=== PATIENT | male | born 1965 | race Caucasian/White ===

== ENCOUNTER 2019-08-02 09:49 | Inpatient (IN) | payer OTHER, SELFPAY ==
[2019-08-02] VITALS (15 sets, daily range): BP systolic 112–142; BP diastolic 60–88; PULSE 76–102; RESP 18–33; TEMP 36.2–39.1; O2SAT 88–98; BMI 31.0
--- NOTE | 2019-08-02 10:20 | DI.RAD.S_ITS ---
PROCEDURE: XR CHEST 1V INDICATIONS: sob, cough, sepsis. TECHNIQUE: One view of the chest was acquired. COMPARISON: [facility], CR, XR CHEST 2 VIEWS, 06/19/2018, 13:59. FINDINGS: Surgical changes and devices: None. Lungs and pleura: Increased attenuation within the retrocardiac region appears to be present on the left. No large effusion or pneumothorax is evident. Mediastinum: Mediastinal contours appear normal. Heart size is normal. Bones and chest wall: No suspicious bony lesions. Overlying soft tissues appear unremarkable. IMPRESSION: Atelectasis versus pneumonia within the retrocardiac region on the left. Dictated by: Shayan Jennings M.D. on 08/02/2019 at 9:41 Approved by: Shayan Jennings M.D. on 08/02/2019 at 9:41
[2019-08-02] MEDS: IBUPROFEN 400 MG TABLET PO (10:31)
[2019-08-02] MEDS: SODIUM CHLORIDE 0.9% 1,000 ML 1000 ML IV ×2 (10:31→12:34)
--- NOTE | 2019-08-02 10:33 | ED.FEVER ---
HPI - Fever General Chief Complaint: Fever Stated Complaint: waiting at [facility] and collapsed/fell of chair/sick Time Seen by Provider: 08/02/19 10:33 Source: patient Mode of arrival: Wheelchair Limitations: no limitations History of Present Illness HPI Narrative: This is a 54-year-old male who comes in with a day or 2 of fevers. Patient states he has not been feeling well. He complains of headache, myalgias, cough with productive sputum. Patient states feels a little bit hard to breathe. He denies any chest pain. He denies any neck pain. He denies any nausea or vomiting. He denies any diarrhea, no black or bloody stools. He denies any abdominal pain. He denies any dysuria, urgency or frequency. patient was at the walk-in clinic when he sort of collapsed. By his description he did not lose consciousness but just felt very ill and sort of fell down. Patient denies any past medical history, denies any prior surgeries. He denies any tobacco use currently or in the past. Denies alcohol, no street drugs or illicit. Denies any allergies to medications. He does not have a primary care. He lives in [place]. Related Data Home Medications Medication Instructions Recorded Confirmed No Known Home Medications 08/02/19 08/02/19 Allergies Allergy/AdvReac Type Severity Reaction Status Date / Time allopurinol [ALLOPURINOL] Allergy Unknown Verified 08/02/19 10:31 Review of Systems Review of Systems ROS Unobtainable: All systems reviewed & are unremarkable except as noted in HPI and below Patient History Social History household members: significant other Smoking Status: Never smoker alcohol intake: never Smoking Status: Never smoker alcohol intake frequency: 0-2 drinks per day Substance Use Type: does not use Exam Narrative Exam Narrative: GEN: well nourished, male, alert and oriented x 3, patient appears to be in moderate distress. patient appears to not feel well. HEENT: Atraumatic, pupils are equal round reactive to light, extraocular movements are intact, nares are clear, TMs are clear with no fluid, there is no conjunctival pallor. Throat is clear without any exudates, erythema, tonsillar enlargement or uvular deviation, no meningeal signs. HEART: Regular rate and rhythm without murmur, clicks, rubs. No carotid bruits, pulses are equal in upper and lower extremities. No edema bilateral lower extremities. LUNGS:Lungs are coarse bilaterally, no wheezes, no rales, positive crackles, chest moves symmetrically, to positive for tachypnea. Patient has a wet sounding cough. ABD:bowel sounds normal, soft, non-tender, no guarding, rebound, rigidity, no masses noted, no hepatosplenomegaly :No CVA tenderness MSCL: Non-tender, no muscle atrophy, full range of motion of upper and lower extremities. NEURO:CN 2-12 intact, sensation normal SKIN: No rash, no petechiae, no lesions. Initial Vital Signs Initial Vital Signs: Vital Signs Temperature 102.4 F H 08/02/19 10:12 Pulse Rate 102 H 08/02/19 10:12 Respiratory Rate 24 08/02/19 10:12 Blood Pressure 138/88 08/02/19 10:12 Pulse Oximetry 88 L 08/02/19 10:12 Course Orders Ordered: ED Orders 08/02/19 10:20 XR chest 1V Stat 08/02/19 10:38 Blood Culture Stat 08/02/19 11:04 Arterial Blood Gas Stat 08/02/19 15:00 Urinalysis and Microscopic Stat Acetaminophen (Tylenol) 650 mg PO Q6HR PRN PRN Reason: Fever/Mild Pain (1-3) Enoxaparin Sodium (Lovenox) 40 mg SUBCUT DAILY CARMEN Sodium Chloride (Normal Saline 0.9%) 1,000 mls @ 100 mls/hr IV CONT CARMEN Last Admin: 08/02/19 16:40 Dose: 100 mls/hr Documented by: FERMÍN Ibuprofen (Advil) 600 mg PO Q6HR PRN PRN Reason: Fever/Mild Pain (1-3) Ondansetron HCl (Zofran) 4 mg IV Q8HR PRN PRN Reason: Nausea And Vomiting Oseltamivir Phosphate (Tamiflu) 75 mg PO BID CARMEN Discontinued Medications Albuterol/Ipratropium (Duoneb) 3 ml INH NOW ONE Stop: 08/02/19 11:43 Last Admin: 08/02/19 12:37 Dose: 3 ml Documented by: RANJEET Sodium Chloride (Normal Saline 0.9%) 1,000 mls @ 1,000 mls/hr IV BOLUS ONE Stop: 08/02/19 11:21 Last Infusion: 08/02/19 12:34 Dose: 0 mls/hr Documented by: Admin: 08/02/19 10:31 Dose: 1,000 mls/hr Documented by: RANJEET Sodium Chloride (Normal Saline 0.9%) 1,000 mls @ 1,000 mls/hr IV BOLUS ONE Stop: 08/02/19 12:41 Last Infusion: 08/02/19 14:13 Dose: 0 mls/hr Documented by: Admin: 08/02/19 12:34 Dose: 1,000 mls/hr Documented by: RANJEET Ibuprofen (Advil) 400 mg PO NOW ONE Stop: 08/02/19 10:23 Last Admin: 08/02/19 10:31 Dose: 400 mg Documented by: RANJEET Influenza Virus Vaccine (Flu Vaccine) 0.5 ml IM .ONCE ONE Stop: 08/02/19 15:56 Last Admin: 08/02/19 16:39 Dose: Not Given Documented by: BRENDAN Lidocaine HCl (Urojet) 5 ml TOP NOW ONE Stop: 08/02/19 14:24 Last Admin: 08/02/19 14:53 Dose: 5 ml Documented by: RANJEET Oseltamivir Phosphate (Tamiflu) 75 mg PO NOW ONE Stop: 08/02/19 11:43 Last Admin: 08/02/19 12:36 Dose: 75 mg Documented by: RANJEET Vital Signs Vital signs: Vital Signs - 8 hr 08/02/19 11:35 08/02/19 11:37 08/02/19 12:15 Temperature 97.2 F L Pulse Rate 93 H 83 Respiratory Rate 30 H 25 H Blood Pressure [Right Arm] 142/75 H 123/69 Pulse Oximetry 96 95 08/02/19 12:38 08/02/19 12:44 08/02/19 13:00 Temperature 99.1 F Pulse Rate 80 86 Respiratory Rate 23 Blood Pressure [Right Arm] 129/65 Pulse Oximetry 96 96 08/02/19 14:00 08/02/19 14:22 Temperature Pulse Rate 76 Respiratory Rate 21 Blood Pressure [Right Arm] 115/72 Pulse Oximetry 96 98 MDM - Fever Lab Data Attestation: I reviewed the patient's lab results. Result diagrams: 08/02/19 10:05 08/02/19 10:05 Labs: Lab Results 08/02/19 08/02/19 08/02/19 Range/Units 10:05 10:05 10:05 WBC 4.4 L (4.5-11.0) X10^3/uL RBC 4.60 (4.5-5.9) X10^6/uL Hgb 15.4 (13.5-17.5) g/dL Hct 42.5 (41-53) % MCV 92.4 (80-100) fL MCH 33.5 (26-34) PG MCHC 36.2 H (30-36) % RDW 12.6 (11.6-14.8) % Plt Count 151 (150-400) X10^3/uL Neut % (Auto) 73.0 (50-75) % Lymph % (Auto) 18.8 L (25-40) % [place] % (Auto) 8.0 (3-14) % Eos % (Auto) 0.0 L (2-4) % Baso % (Auto) 0.2 (0-2) % Neut # (Auto) 3200 (8372-6061) /uL Lymph # (Auto) 800 L (7463-4398) /uL [place] # (Auto) 400 (0-900) /uL Eos # (Auto) 0 (0-450) /uL Baso # (Auto) 0 (0-100) /uL ABG pH (7.35-7.45) ABG pCO2 (35-45) mmHg ABG pO2 (80-100) mmHg ABG HCO3 (22-26) mmol/L ABG Total CO2 (21-31) mmol/L ABG O2 Saturation (95-100) % ABG Base Excess (-2-2) mmol/L FiO2 Sodium 132 L (137-145) mmol/L Potassium 3.4 (3.4-5.1) mmol/L Chloride 97 L (98-107) mmol/L Carbon Dioxide 22 (22-32) mmol/L BUN 16 (9-20) mg/dL Creatinine 1.00 (0.66-1.25) mg/dL Estimated GFR > 60.0 (>60) mL/min BUN/Creatinine Ratio 16.0 (6-22) Glucose 128 H (70-100) mg/dL Lactate (0.7-2.1) mmol/L Calcium 7.7 L (8.4-10.2) mg/dL Total Bilirubin 0.8 (0.2-1.3) mg/dL AST 75 H (17-59) IU/L ALT 44 (<50) IU/L Alkaline Phosphatase 70 (38-126) U/L Total Protein 6.9 (6.3-8.2) g/dL Albumin 4.0 (3.5-5.0) g/dL Globulin 2.9 (1.7-4.1) g/dL Albumin/Globulin Ratio 1.4 (1.0-2.8) Procalcitonin 0.19 (<0.5) ng/mL Urine Color Urine Appearance Urine pH (4.5-8.0) Ur Specific [place] (1.000-1.035) Urine Protein (Negative) Urine Glucose (UA) (Negative) g/dL Urine Ketones (NEGATIVE) Urine Occult Blood (Negative) Urine Nitrate (Negative) Urine Bilirubin (NEGATIVE) Urine Urobilinogen (0.2) E.U./dL Ur Leukocyte Esterase (NEGATIVE) Urine RBC (0-5/HPF) Urine WBC (0-5/HPF) Amorphous Sediment Urine Bacteria (None) Hyaline Casts (None) Ur Culture Indicated? Influenza A (RT-PCR) (NEGATIVE) Influenza B (RT-PCR) (NEGATIVE) 08/02/19 08/02/19 08/02/19 Range/Units 10:05 10:10 11:04 WBC (4.5-11.0) X10^3/uL RBC (4.5-5.9) X10^6/uL Hgb (13.5-17.5) g/dL Hct (41-53) % MCV (80-100) fL MCH (26-34) PG MCHC (30-36) % RDW (11.6-14.8) % Plt Count (150-400) X10^3/uL Neut % (Auto) (50-75) % Lymph % (Auto) (25-40) % [place] % (Auto) (3-14) % Eos % (Auto) (2-4) % Baso % (Auto) (0-2) % Neut # (Auto) (7223-4511) /uL Lymph # (Auto) (8507-7671) /uL [place] # (Auto) (0-900) /uL Eos # (Auto) (0-450) /uL Baso # (Auto) (0-100) /uL ABG pH 7.45 (7.35-7.45) ABG pCO2 28.0 L (35-45) mmHg ABG pO2 51 L (80-100) mmHg ABG HCO3 19 L (22-26) mmol/L ABG Total CO2 20 L (21-31) mmol/L ABG O2 Saturation 88 L (95-100) % ABG Base Excess -5.0 L (-2-2) mmol/L FiO2 21 Sodium (137-145) mmol/L Potassium (3.4-5.1) mmol/L Chloride (98-107) mmol/L Carbon Dioxide (22-32) mmol/L BUN (9-20) mg/dL Creatinine (0.66-1.25) mg/dL Estimated GFR (>60) mL/min BUN/Creatinine Ratio (6-22) Glucose (70-100) mg/dL Lactate 1.2 (0.7-2.1) mmol/L Calcium (8.4-10.2) mg/dL Total Bilirubin (0.2-1.3) mg/dL AST (17-59) IU/L ALT (<50) IU/L Alkaline Phosphatase (38-126) U/L Total Protein (6.3-8.2) g/dL Albumin (3.5-5.0) g/dL Globulin (1.7-4.1) g/dL Albumin/Globulin Ratio (1.0-2.8) Procalcitonin (<0.5) ng/mL Urine Color Urine Appearance Urine pH (4.5-8.0) Ur Specific [place] (1.000-1.035) Urine Protein (Negative) Urine Glucose (UA) (Negative) g/dL Urine Ketones (NEGATIVE) Urine Occult Blood (Negative) Urine Nitrate (Negative) Urine Bilirubin (NEGATIVE) Urine Urobilinogen (0.2) E.U./dL Ur Leukocyte Esterase (NEGATIVE) Urine RBC (0-5/HPF) Urine WBC (0-5/HPF) Amorphous Sediment Urine Bacteria (None) Hyaline Casts (None) Ur Culture Indicated? Influenza A (RT-PCR) Flu a positive H (NEGATIVE) Influenza B (RT-PCR) Flu b negative (NEGATIVE) 08/02/19 Range/Units 15:00 WBC (4.5-11.0) X10^3/uL RBC (4.5-5.9) X10^6/uL Hgb (13.5-17.5) g/dL Hct (41-53) % MCV (80-100) fL MCH (26-34) PG MCHC (30-36) % RDW (11.6-14.8) % Plt Count (150-400) X10^3/uL Neut % (Auto) (50-75) % Lymph % (Auto) (25-40) % [place] % (Auto) (3-14) % Eos % (Auto) (2-4) % Baso % (Auto) (0-2) % Neut # (Auto) (0276-9391) /uL Lymph # (Auto) (2134-4399) /uL [place] # (Auto) (0-900) /uL Eos # (Auto) (0-450) /uL Baso # (Auto) (0-100) /uL ABG pH (7.35-7.45) ABG pCO2 (35-45) mmHg ABG pO2 (80-100) mmHg ABG HCO3 (22-26) mmol/L ABG Total CO2 (21-31) mmol/L ABG O2 Saturation (95-100) % ABG Base Excess (-2-2) mmol/L FiO2 Sodium (137-145) mmol/L Potassium (3.4-5.1) mmol/L Chloride (98-107) mmol/L Carbon Dioxide (22-32) mmol/L BUN (9-20) mg/dL Creatinine (0.66-1.25) mg/dL Estimated GFR (>60) mL/min BUN/Creatinine Ratio (6-22) Glucose (70-100) mg/dL Lactate (0.7-2.1) mmol/L Calcium (8.4-10.2) mg/dL Total Bilirubin (0.2-1.3) mg/dL AST (17-59) IU/L ALT (<50) IU/L Alkaline Phosphatase (38-126) U/L Total Protein (6.3-8.2) g/dL Albumin (3.5-5.0) g/dL Globulin (1.7-4.1) g/dL Albumin/Globulin Ratio (1.0-2.8) Procalcitonin (<0.5) ng/mL Urine Color Yellow Urine Appearance Clear Urine pH 5.5 (4.5-8.0) Ur Specific [place] 1.010 (1.000-1.035) Urine Protein 1+ H (Negative) Urine Glucose (UA) Negative (Negative) g/dL Urine Ketones Negative (NEGATIVE) Urine Occult Blood 1+ H (Negative) Urine Nitrate Negative (Negative) Urine Bilirubin Negative (NEGATIVE) Urine Urobilinogen 0.2 (0.2) E.U./dL Ur Leukocyte Esterase Negative (NEGATIVE) Urine RBC 0-1/hpf (0-5/HPF) Urine WBC 0-1/hpf (0-5/HPF) Amorphous Sediment 2+ Urine Bacteria None seen (None) Hyaline Casts 0-1/lpf (None) Ur Culture Indicated? Cult not indicated Influenza A (RT-PCR) (NEGATIVE) Influenza B (RT-PCR) (NEGATIVE) Imaging Data Chest x-ray: Radiologist's impression: [address] [address] XRay Report Signed Patient: Noble Garcia R#: [id number] : 1965Acct:[id number] Age/Sex: 54 / MDate of Service: 08/02/19 Loc: ED Accession Number: [id number] Procedure: XR chest 1V Ordering Provider: Karli Mcknight D.O. PROCEDURE: XR CHEST 1V INDICATIONS: sob, cough, sepsis. TECHNIQUE: One view of the chest was acquired. COMPARISON: [facility], , XR CHEST 2 VIEWS, 06/19/2018, 13:59. FINDINGS: Surgical changes and devices: None. Lungs and pleura: Increased attenuation within the retrocardiac region appears to be present on the left. No large effusion or pneumothorax is evident. Mediastinum: Mediastinal contours appear normal. Heart size is normal. Bones and chest wall: No suspicious bony lesions. Overlying soft tissues appear unremarkable. IMPRESSION: Atelectasis versus pneumonia within the retrocardiac region on the left. Dictated by: Shayan Jennings M.D. on 08/02/2019 at 9:41 Approved by: Shayan Jennings M.D. on 08/02/2019 at 9:41 ECG Data Interpretation: MDM Narrative Medical decision making narrative: On recheck, patient is feeling improved. Temperature has decreased, he still has tachypnea. Patient does come in with a fever, a pulse of 102 and his white count is 4.4, 132 with a chloride 97 glucose is 128. Calcium is 7.7 with an AST of 75, procalcitonin is 0.19 with patient's x-ray findings of a possible pneumonia this and be not likely bacterial in patient is influenza positive. He is quite course in his O2 is decreased on room air as well as on ABG and appears to have more of a respiratory alkalosis. Discussed with patient I would like keep him for observation. Tamiflu, antibiotics held as bacterial is less likely cause of current infection. Spoke with Dr. Islas the hospitalist, he accepts for observation. Discharge Plan Departure Patient Disposition: Admitted as Observation Clinical Impression: Pneumonia, Influenza A, Sepsis Discharge Date/Time: 08/02/19 15:00 Admit Date/Time: 08/02/19 15:30 Admit Provider: Ryland Islas
[2019-08-02 10:35] LABS: Add Manual Diff / Slide Review NO; Basophils Absolute Auto 0 /uL (0-100); Basophils Percent Auto 0.2 % (0-2); Eosinophils Absolute Auto 0 /uL (0-450); Hematocrit 42.5 % (41-53); Hemoglobin 15.4 g/dL (13.5-17.5); Lymphocytes Absolute Auto 800 /uL (1100-4500); Lymphocytes Percent Auto 18.8 % (25-40); Mean Corpuscular HGB Conc 36.2 % (30-36); Mean Corpuscular Hemoglobin 33.5 PG (26-34); Mean Corpuscular Volume 92.4 fL (80-100); Monocytes Absolute Auto 400 /uL (0-900); Neutrophils Absolute Auto 3200 /uL (1500-7000); Platelet Count 151 X10^3/uL (150-400); Red Cell Distribution Width 12.6 % (11.6-14.8); White Blood Cell Count 4.4 X10^3/uL (4.5-11.0)
[2019-08-02 10:39] LABS: Alanine Aminotransferase 44 IU/L (<50); Albumin Globulin Ratio 1.4 (1.0-2.8); Alkaline Phosphatase 70 U/L (38-126); Aspartate Aminotransferase 75 IU/L (17-59); Bilirubin Total 0.8 mg/dL (0.2-1.3); Blood Urea Nitrogen 16 mg/dL (9-20); Calcium 7.7 mg/dL (8.4-10.2); Carbon Dioxide 22 mmol/L (22-32); Chloride 97 mmol/L (98-107); Estimated Glomerular Filt Rate > 60.0 mL/min (>60); Globulin 2.9 g/dL (1.7-4.1); Glucose 128 mg/dL (70-100); HEMOLYSIS < 15 (0-50); Potassium 3.4 mmol/L (3.4-5.1); Sodium 132 mmol/L (137-145); Total Protein 6.9 g/dL (6.3-8.2)
[2019-08-02 10:40] LABS: Lactate (Lactic Acid) 1.2 mmol/L (0.7-2.1)
[2019-08-02 11:01] LABS: Procalcitonin 0.19 ng/mL (<0.5)
[2019-08-02 11:19] LABS: Fractionated Inspired Oxygen 21; HCO3 ABG 19 mmol/L (22-26); Oxygen Saturation ABG 88 % (95-100); PO2 ABG 51 mmHg (80-100); TCO2 ABG 20 mmol/L (21-31); pH ABG 7.45 (7.35-7.45)
[2019-08-02 11:24] LABS: Influenza A - CEPHEID Flu A POSITIVE (NEGATIVE); Influenza B - CEPHEID Flu B NEGATIVE (NEGATIVE)
[2019-08-02] MEDS: OSELTAMIVIR 75 MG CAPSULE PO ×2 (12:36→20:55)
[2019-08-02] MEDS: ALBUTEROL/IPRATROPIUM 3 ML AMPUL INH (12:37)
--- NOTE | 2019-08-02 14:15 | PC.NURSE ---
Attempted to give report, Accepting RN unable to take report at this time.
[2019-08-02] MEDS: LIDOCAINE 2% (UROJET) 5 ML GEL TOP (14:53)
[2019-08-02 15:12] LABS: Bacteria Urine None Seen
[2019-08-02 15:16] LABS: Appearance Urine UA CLEAR; Bilirubin Urine UA NEGATIVE (NEGATIVE); Color Urine UA YELLOW; Glucose Urine UA NEGATIVE (Negative); Ketones Urine UA NEGATIVE (NEGATIVE); Leukocyte Esterase Urine UA NEGATIVE (NEGATIVE); Nitrite Urine UA NEGATIVE (Negative); Occult Blood Urine UA 1+ (Negative); Protein Urine UA 1+ (Negative); Urobilinogen Urine UA 0.2 E.U./dL (0.2); pH Urine UA 5.5 (4.5-8.0)
[2019-08-02 15:26] LABS: Amorphous Sediment Urine 2+; Culture Indicated Urine Cult Not Indicated; Hyaline Casts Urine 0-1/LPF; RBC Urine 0-1/HPF (0-5/HPF); WBC Urine 0-1/HPF (0-5/HPF)
--- NOTE | 2019-08-02 15:45 | PC.NURSE ---
Received report from ED but pt didn't arrive until almost 1500. He denies any problems at this time. Sats on 2L are 96%. Hob elevated. Is wearing a mask. Report given to oncoming shift. Pt denies any immed concerns at this time.
--- NOTE | 2019-08-02 15:57 | PM.HP.1 ---
History of Present Illness History of Present Illness Date Patient Seen: 08/02/19 Time Patient Seen: 16:03 Chief complaint: waiting at [facility] and collapsed/fell of chair/sick Narrative: Noble Garcia is a 54-year-old male who denies past medical history who states that he has been feeling sick with headache, myalgias, productive cough for the past 5 days. He has been getting worse as far as his symptoms and he feels like it is getting harder to breathe. He denied any chest pain, nausea, vomiting, abdominal pain. He has had no diarrhea. He initially presented to the walk-in clinic when he became very ill and fell to the ground. He did not pass out and he did not hit his head. During my interview the patient appears ill, speaking only in 1-2 word phrases, and primarily is limited to yes or no responses. History is taken in combination from the patient and emergency room documentation. In the emergency room, patient's vital signs were notable for a fever to 102, tachycardia, hypoxemia to 88% on room air which responded to a minimal supplemental oxygenation. His flu test was positive for influenza a. ABG was also performed which showed a PO2 of 51. Other lab evaluation showed a relatively unremarkable CBC, WBC count of 4.4. Chemistries revealed a sodium of 132, chloride 97, creatinine of 1.0, glucose of 128, lactate of 1.2 and a mildly elevated AST at 75. His procalcitonin was 0.19. In the emergency room he was also obstructed had 650 cc of urine. A Gao catheter was placed. UA was negative for infection. Patient was admitted to Medicine for sepsis with acute hypoxemic respiratory failure secondary to influenza A. Patient History Family & Social History Social History: household members significant other Prior Living Arrangements Mobile home Safety & Behavioral: Feels Safe in Current Yes Environment Been Physically Hurt or No Threatened By a Person Suicidal Ideation Description None Suicide Plan Description No Plan Tobacco & Substance use: Smoking Status Never smoker alcohol intake never alcohol intake frequency 0-2 drinks per day Substance Use Type does not use Meds Home Medications and Allergies Home Medications Medication Instructions Recorded Confirmed Type No Known Home Medications 08/02/19 08/02/19 History Allergies Allergy/AdvReac Type Severity Reaction Status Date / Time allopurinol [ALLOPURINOL] Allergy Unknown Verified 08/02/19 10:31 Review of Systems Review of Systems Narrative: All other systems reviewed with the patient and are negative unless otherwise stated. Exam Vital Signs (past 8 hours): - 08/02/19 10:12 08/02/19 10:15 08/02/19 10:30 Temperature 102.4 F H Pulse Rate 102 H 99 H 89 Respiratory Rate 24 18 33 H Blood Pressure 138/88 Blood Pressure [Right Arm] 141/76 H 132/75 Pulse Oximetry 88 L 95 94 08/02/19 11:00 08/02/19 11:35 08/02/19 11:37 Temperature 97.2 F L Pulse Rate 91 H 93 H Respiratory Rate 21 30 H Blood Pressure Blood Pressure [Right Arm] 129/76 142/75 H Pulse Oximetry 94 96 08/02/19 12:15 08/02/19 12:38 08/02/19 12:44 Temperature 99.1 F Pulse Rate 83 80 Respiratory Rate 25 H Blood Pressure Blood Pressure [Right Arm] 123/69 Pulse Oximetry 95 96 08/02/19 13:00 08/02/19 14:00 08/02/19 14:22 Temperature Pulse Rate 86 76 Respiratory Rate 23 21 Blood Pressure Blood Pressure [Right Arm] 129/65 115/72 Pulse Oximetry 96 96 98 Oxygen Delivery Method Nasal Cannula Oxygen Flow Rate 2 Narrative Exam Narrative: GENERAL APPEARANCE: Appears acutely ill, diaphoretic, eyes closed and opens to voice. SKIN: Inspection of the skin reveals no rashes, ulcerations or petechiae. HEENT: Oral mucosa appears dry, sclera is anicteric, normocephalic and atraumatic. NECK: Supple and symmetric. There was no thyroid enlargement, and no tenderness, or masses were felt. No cervical lymphadenopathy is palpable. CHEST: Normal AP diameter and normal contour without any kyphoscoliosis. LUNGS: Auscultation of the lungs revealed diminished breath sounds primarily in the lung bases but no wheezes, rhonchi, or rales. His effort was poor. CARDIOVASCULAR: There was a regular rate and rhythm without any murmurs, gallops, rubs. Peripheral pulses were 2+ and symmetric. ABDOMEN: Soft and nontender with normal bowel sounds. No ascites was noted. MUSCULOSKELETAL: There was no tenderness or effusions noted. Muscle strength and tone were normal. EXTREMITIES: No cyanosis, clubbing or edema. NEUROLOGIC: GCS of 13, he is confused and opens eyes to voice. He follows commands. He is moving all extremities equally. Objective Labs Result Diagrams: 08/02/19 10:05 08/02/19 10:05 Labs: Laboratory Results - last 24 hr 08/02/19 08/02/19 08/02/19 10:05 10:05 10:05 WBC 4.4 L RBC 4.60 Hgb 15.4 Hct 42.5 MCV 92.4 MCH 33.5 MCHC 36.2 H RDW 12.6 Plt Count 151 Neut % (Auto) 73.0 Lymph % (Auto) 18.8 L [place] % (Auto) 8.0 Eos % (Auto) 0.0 L Baso % (Auto) 0.2 Neut # (Auto) 3200 Lymph # (Auto) 800 L [place] # (Auto) 400 Eos # (Auto) 0 Baso # (Auto) 0 ABG pH ABG pCO2 ABG pO2 ABG HCO3 ABG Total CO2 ABG O2 Saturation ABG Base Excess FiO2 Sodium 132 L Potassium 3.4 Chloride 97 L Carbon Dioxide 22 BUN 16 Creatinine 1.00 Estimated GFR > 60.0 BUN/Creatinine Ratio 16.0 Glucose 128 H Lactate Calcium 7.7 L Total Bilirubin 0.8 AST 75 H ALT 44 Alkaline Phosphatase 70 Total Protein 6.9 Albumin 4.0 Globulin 2.9 Albumin/Globulin Ratio 1.4 Procalcitonin 0.19 Urine Color Urine Appearance Urine pH Ur Specific [place] Urine Protein Urine Glucose (UA) Urine Ketones Urine Occult Blood Urine Nitrate Urine Bilirubin Urine Urobilinogen Ur Leukocyte Esterase Urine RBC Urine WBC Amorphous Sediment Urine Bacteria Hyaline Casts Ur Culture Indicated? Influenza A (RT-PCR) Influenza B (RT-PCR) 08/02/19 08/02/19 08/02/19 10:05 10:10 11:04 WBC RBC Hgb Hct MCV MCH MCHC RDW Plt Count Neut % (Auto) Lymph % (Auto) [place] % (Auto) Eos % (Auto) Baso % (Auto) Neut # (Auto) Lymph # (Auto) [place] # (Auto) Eos # (Auto) Baso # (Auto) ABG pH 7.45 ABG pCO2 28.0 L ABG pO2 51 L ABG HCO3 19 L ABG Total CO2 20 L ABG O2 Saturation 88 L ABG Base Excess -5.0 L FiO2 21 Sodium Potassium Chloride Carbon Dioxide BUN Creatinine Estimated GFR BUN/Creatinine Ratio Glucose Lactate 1.2 Calcium Total Bilirubin AST ALT Alkaline Phosphatase Total Protein Albumin Globulin Albumin/Globulin Ratio Procalcitonin Urine Color Urine Appearance Urine pH Ur Specific [place] Urine Protein Urine Glucose (UA) Urine Ketones Urine Occult Blood Urine Nitrate Urine Bilirubin Urine Urobilinogen Ur Leukocyte Esterase Urine RBC Urine WBC Amorphous Sediment Urine Bacteria Hyaline Casts Ur Culture Indicated? Influenza A (RT-PCR) Flu a positive H Influenza B (RT-PCR) Flu b negative 08/02/19 15:00 WBC RBC Hgb Hct MCV MCH MCHC RDW Plt Count Neut % (Auto) Lymph % (Auto) [place] % (Auto) Eos % (Auto) Baso % (Auto) Neut # (Auto) Lymph # (Auto) [place] # (Auto) Eos # (Auto) Baso # (Auto) ABG pH ABG pCO2 ABG pO2 ABG HCO3 ABG Total CO2 ABG O2 Saturation ABG Base Excess FiO2 Sodium Potassium Chloride Carbon Dioxide BUN Creatinine Estimated GFR BUN/Creatinine Ratio Glucose Lactate Calcium Total Bilirubin AST ALT Alkaline Phosphatase Total Protein Albumin Globulin Albumin/Globulin Ratio Procalcitonin Urine Color Yellow Urine Appearance Clear Urine pH 5.5 Ur Specific [place] 1.010 Urine Protein 1+ H Urine Glucose (UA) Negative Urine Ketones Negative Urine Occult Blood 1+ H Urine Nitrate Negative Urine Bilirubin Negative Urine Urobilinogen 0.2 Ur Leukocyte Esterase Negative Urine RBC 0-1/hpf Urine WBC 0-1/hpf Amorphous Sediment 2+ Urine Bacteria None seen Hyaline Casts 0-1/lpf Ur Culture Indicated? Cult not indicated Influenza A (RT-PCR) Influenza B (RT-PCR) Assessment & Plan Assessment & Plan narrative: Noble Garcia is a 54-year-old male who denies past medical history who states that he has been feeling sick with headache, myalgias, productive cough for the past 5 days. He is admitted to Medicine with sepsis secondary to influenza a. 1. Sepsis, acute, present on admission - SOFA score of 3 with hypoxemic respiratory failure and GCS of 13. He also has borderline platelets at 151. Secondary to influenza a. Procalcitonin is negative in do not suspect superimposed bacterial pneumonia at this time. -continue supportive care with Tamiflu 75 mg b.i.d. -supplemental oxygen to maintain level greater than 80% -continue IV fluids -symptom management with Tylenol or Motrin. -continue telemetry 2. Acute hypoxemic respiratory failure, secondary to influenza a as noted above. Treatment is supportive care at this time. -supplemental oxygen as noted above -continue management of sepsis 3. Toxic metabolic encephalopathy, acute, present on admission -secondary to above sepsis and this regulated response from influenza a. -continue supportive management as above 4. Urinary obstruction, acute, present on admission -UA negative for infection, unclear etiology and patient reports no past medical history. Not able to give a reliable history for BPH symptoms at this time. -when mental status has improved, will attempt trial of void, with or without possible BPH medications depending on symptoms. 5. Elevated glucose, present on admission -obtain A1c -continue management of sepsis as noted above 6. Elevated AST, acuity uncertain, present on admission -likely elevated secondary to influenza. -continue to follow hepatic panel, supportive care as noted above. Code: Full, patient states his brother is emergency contact and surrogate decision maker DVT: Lovenox daily Dispo: Patient is admitted under inpatient status as his stay is likely to exceed 2 midnights. Scores GCS Baldev coma scale eye opening: To sound Baldev coma scale verbal response: Confused [place] coma scale motor response: Obey commands Baldev coma scale total score: 13 Quality VTE Deep Vein Thrombosis/Pulmonary Embolism Present on Admission: No
[2019-08-02] MEDS: SODIUM CHLORIDE 0.9% 1,000 ML 100 ML IV (16:40)
[2019-08-02] MEDS: ACETAMINOPHEN 325 MG TABLET 650 MG PO (20:55)
--- NOTE | 2019-08-02 21:44 | PC.NURSE ---
Patient sleeping most of shift; fever 100.9 and shivering; PO Tylenol administered with water; A&O X3; Tele SR; mild expirator wheezes to anterior RLL; IV fluids infusing; Bed alarm active and call light within reach
[2019-08-03] VITALS (11 sets, daily range): BP systolic 116–132; BP diastolic 69–83; PULSE 80–92; RESP 16–30; TEMP 37.1–38.6; O2SAT 88–95
[2019-08-03] MEDS: IBUPROFEN 600 MG TABLET PO ×2 (00:52→18:27)
[2019-08-03] MEDS: SODIUM CHLORIDE 0.9% 1,000 ML 100 ML IV ×2 (03:55→14:42)
[2019-08-03 06:51] LABS: Blood Urea Nitrogen 16 mg/dL (9-20); Calcium 7.4 mg/dL (8.4-10.2); Carbon Dioxide 25 mmol/L (22-32); Chloride 105 mmol/L (98-107); Estimated Glomerular Filt Rate > 60.0 mL/min (>60); Glucose 96 mg/dL (70-100); HEMOLYSIS < 15 (0-50); Magnesium 2.4 mg/dL (1.6-2.3); Phosphorous 2.8 mg/dL (2.5-4.5); Potassium 3.4 mmol/L (3.4-5.1); Sodium 137 mmol/L (137-145)
[2019-08-03 06:55] LABS: White Blood Cell Count 4.3 X10^3/uL (4.5-11.0)
[2019-08-03 06:56] LABS: Add Manual Diff / Slide Review YES; Hematocrit 39.8 % (41-53); Hemoglobin 14.2 g/dL (13.5-17.5); Mean Corpuscular HGB Conc 35.8 % (30-36); Mean Corpuscular Hemoglobin 33.3 PG (26-34); Platelet Count 152 X10^3/uL (150-400); Red Blood Cell Count 4.28 X10^6/uL (4.5-5.9); Red Cell Distribution Width 12.9 % (11.6-14.8)
[2019-08-03 06:59] LABS: Hemoglobin A1C% w Est Avg Glu 5.6 % (4.0-6.0)
[2019-08-03 07:24] LABS: Procalcitonin 0.18 ng/mL (<0.5)
[2019-08-03 07:36] LABS: Neutrophils Absolute Manual 2107 /uL (3000-5900); Total Cells Counted 100
[2019-08-03 07:37] LABS: RBC Morphology Normal Morphology
[2019-08-03] MEDS: ENOXAPARIN 40 MG/0.4 ML SYRINGE SUBCUT (09:33)
[2019-08-03] MEDS: OSELTAMIVIR 75 MG CAPSULE PO ×2 (09:33→21:25)
--- NOTE | 2019-08-03 11:01 | CM.DANOTE ---
DCP: Case received, EMR reviewed and met briefly with patient. He was not feeling well, made conversation short. Was able to get some baseline information from patient. DCP assessment completed with information currently available. Patient is a 54 year old male who admitted yesterday afternoon to the care of the hospitalist team. PCP: No provider currently Payer: confirmed: Nathaly PRESLEY. Patient came over to the hospital via wheel-chair from the [id number]. He apparently had a syncopal episode, secondary to increased weakness, malaise. Patient was presented with a head-ache, as well as fever. Patient is also to note sepsis/hypoxemia. He holds current diagnosis of Influenza A. Met briefly with patient, was laying bed, limited conversation, due to patient's illness. He is currently on oxygen. He resides in [place], confirmed that he does not have a PCP. He stated that he lives with his girlfriend. Patient is independent, currently employed in [employer]. P: DCP to continue to follow. He is here due to flu symptoms and weakness at this time. He should be able to return home when he is medically stable, and no longer needs oxygen. Sandee Srinivasan RN/Broommaking Supervisor
[2019-08-03] MEDS: ONDANSETRON 4 MG/2 ML INJ IV (14:42)
[2019-08-03] MEDS: ACETAMINOPHEN 325 MG TABLET 650 MG PO (14:42)
[2019-08-03] MEDS: MAG HYDROX/ALUM/SIMETH 30 ML UDC PO (14:42)
--- NOTE | 2019-08-03 16:07 | PM.PN.1 ---
Subjective Subjective Date Patient Seen: 08/03/19 Time Patient Seen: 09:00 Interval history: Noble Garcia is a 54-year-old male with no past medical history who was admitted for the flu. He was confused yesterday but he has improved today. He remains ill and has barely taken in any oral intake today. His A1c value came back at 5.6%. His procalcitonin is stable at 0.18 today. His electrolytes are unremarkable and his WBC count remains stable at 4.3 today. He was febrile this morning to 102, and although he is no longer hypoxic he is quite tachypneic. Exam Vital Signs (past 8 hours): - 08/03/19 09:00 08/03/19 13:55 08/03/19 14:59 Temperature 99 F 99.8 F H Pulse Rate 82 83 92 H Respiratory Rate 18 18 30 H Blood Pressure 130/75 123/83 Pulse Oximetry 91 95 95 Oxygen Delivery Method Room Air Oxygen Flow Rate 0 Narrative Exam Narrative: GENERAL APPEARANCE: Appears acutely ill, diaphoretic, opens eyes spontaneously today. He is lying in a hospital bed with a cold washcloth over his forehead. SKIN: Inspection of the skin reveals no rashes, ulcerations or petechiae. HEENT: Oral mucosa appears moist, sclera is anicteric, normocephalic and atraumatic. NECK: Supple and symmetric. There was no thyroid enlargement, and no tenderness, or masses were felt. No cervical lymphadenopathy is palpable. CHEST: Normal AP diameter and normal contour without any kyphoscoliosis. LUNGS: Auscultation of the lungs revealed diminished breath sounds primarily in the lung bases but no wheezes, rhonchi, or rales. His effort was poor. CARDIOVASCULAR: There was a regular rate and rhythm without any murmurs, gallops, rubs. Peripheral pulses were 2+ and symmetric. ABDOMEN: Soft and nontender with normal bowel sounds. No ascites was noted. MUSCULOSKELETAL: There was no tenderness or effusions noted. Muscle strength and tone were normal. EXTREMITIES: No cyanosis, clubbing or edema. NEUROLOGIC: Confusion has improved today, GCS of 15. He follows commands. He is moving all extremities equally. Objective Labs Result Diagrams: 08/03/19 06:15 08/03/19 06:15 Labs: Laboratory Results - last 24 hr 08/03/19 08/03/19 08/03/19 06:15 06:15 06:15 WBC 4.3 L RBC 4.28 L Hgb 14.2 Hct 39.8 L MCV 93.0 MCH 33.3 MCHC 35.8 RDW 12.9 Plt Count 152 Neut % (Auto) Not Reportable Lymph % (Auto) Not Reportable [place] % (Auto) Not Reportable Eos % (Auto) Not Reportable Baso % (Auto) Not Reportable Lymph # (Auto) Not Reportable [place] # (Auto) Not Reportable Baso # (Auto) Not Reportable Total Counted 100 Seg Neutrophils % 46.0 Band Neutrophils % 3.0 Lymphocytes % (Manual) 40.0 Atypical Lymphs % 4.0 H Monocytes % (Manual) 7.0 Neutrophils # (Manual) 2107 L RBC Morphology Normal morphology Sodium Potassium Chloride Carbon Dioxide BUN Creatinine Estimated GFR BUN/Creatinine Ratio Glucose Hemoglobin A1c 5.6 Calcium Phosphorus Magnesium Procalcitonin 0.18 08/03/19 06:15 WBC RBC Hgb Hct MCV MCH MCHC RDW Plt Count Neut % (Auto) Lymph % (Auto) [place] % (Auto) Eos % (Auto) Baso % (Auto) Lymph # (Auto) [place] # (Auto) Baso # (Auto) Total Counted Seg Neutrophils % Band Neutrophils % Lymphocytes % (Manual) Atypical Lymphs % Monocytes % (Manual) Neutrophils # (Manual) RBC Morphology Sodium 137 Potassium 3.4 Chloride 105 Carbon Dioxide 25 BUN 16 Creatinine 1.00 Estimated GFR > 60.0 BUN/Creatinine Ratio 16.0 Glucose 96 Hemoglobin A1c Calcium 7.4 L Phosphorus 2.8 Magnesium 2.4 H Procalcitonin Assessment & Plan Assessment & Plan narrative: Noble Garcia is a 54-year-old male who denies past medical history who states that he has been feeling sick with headache, myalgias, productive cough for the past 5 days. He is admitted to Medicine with sepsis secondary to influenza a. 1. Sepsis, acute, present on admission - SOFA score of 3 with hypoxemic respiratory failure and GCS of 13. His confusion has improved today. He also has borderline platelets at 151 on admission and stable today. Sepsis is Secondary to influenza a. Procalcitonin is negative in do not suspect superimposed bacterial pneumonia at this time. -continue supportive care with Tamiflu 75 mg b.i.d. -supplemental oxygen to maintain level greater than 80% -continue IV fluids, will switch to D5 1/2 NS today as patient is not tolerating much p.o. intake and should have at least some sugar. -symptom management with Tylenol or Motrin. -continue telemetry 2. Acute hypoxemic respiratory failure, secondary to influenza a as noted above. Treatment is supportive care at this time. -supplemental oxygen as noted above -continue management of sepsis 3. Toxic metabolic encephalopathy, acute, present on admission, improved-secondary to above sepsis and this regulated response from influenza a. -continue supportive management as above 4. Urinary obstruction, acute, present on admission -UA negative for infection, unclear etiology and patient reports no past medical history. Not able to give a reliable history for BPH symptoms at this time. -when mental status has improved, will attempt trial of void, with or without possible BPH medications depending on symptoms. 5. Pre diabetes, new diagnosis -glucose mildly elevated on admission, A1c of 5.6% -will recommend lifestyle modifications when patient is clinically more improved 6. Elevated AST, acuity uncertain, present on admission -likely elevated secondary to influenza and sepsis, also consider MCGUIRE. -continue to follow hepatic panel, supportive care as noted above. Code: Full, patient states his brother is emergency contact and surrogate decision maker DVT: Lovenox daily Dispo: Patient is admitted under inpatient status. He remains acutely ill and anticipate discharge in the next 1-2 days once recovered from influenza. Quality VTE Deep Vein Thrombosis/Pulmonary Embolism Present on Admission: No
--- NOTE | 2019-08-03 16:10 | PC.NURSE ---
Addendum entered by Veronique Farley R.N. 08/03/19 22:17: Pt sats at 88% while on RA while sleeping. Applied O2 at 2L. O2 sats now at 94%. [facility] Addendum entered by Veronique Farley R.N. 08/03/19 16:12: Original Note: Pt alert and oriented x3. Pt lying in bed moaning saying he feels terrible. Dry cough present. Denies pain or nausea at this time. Dr Islas rounding patient at bedside and aware. Gao draining naomi urine, patent and intact. [facility]
[2019-08-03] MEDS: DEXTROSE 5%-0.45% NS 1,000 ML 100 ML IV (16:41)
[2019-08-04 00:14] VITALS: BP 117/63; PULSE 72; RESP 16; TEMP 36.7; O2SAT 93
[2019-08-04] MEDS: DEXTROSE 5%-0.45% NS 1,000 ML 100 ML IV (01:49)
[2019-08-04 06:00] VITALS: BP 120/71; PULSE 75; RESP 20; TEMP 36.8; O2SAT 95
[2019-08-04 06:15] LABS: Add Manual Diff / Slide Review NO; Basophils Absolute Auto 0 /uL (0-100); Basophils Percent Auto 0.3 % (0-2); Eosinophils Absolute Auto 0 /uL (0-450); Eosinophils Percent Auto 0.3 % (2-4); Hematocrit 38.5 % (41-53); Hemoglobin 13.8 g/dL (13.5-17.5); Lymphocytes Absolute Auto 1700 /uL (1100-4500); Lymphocytes Percent Auto 29.7 % (25-40); Mean Corpuscular HGB Conc 35.8 % (30-36); Mean Corpuscular Hemoglobin 33.4 PG (26-34); Mean Corpuscular Volume 93.3 fL (80-100); Monocytes Absolute Auto 500 /uL (0-900); Monocytes Percent Auto 8.3 % (3-14); Neutrophils Absolute Auto 3500 /uL (1500-7000); Neutrophils Percent Auto 61.4 % (50-75); Platelet Count 174 X10^3/uL (150-400); Red Blood Cell Count 4.13 X10^6/uL (4.5-5.9); Red Cell Distribution Width 12.8 % (11.6-14.8); White Blood Cell Count 5.7 X10^3/uL (4.5-11.0)
[2019-08-04 06:23] LABS: Alanine Aminotransferase 30 IU/L (<50); Albumin Globulin Ratio 1.3 (1.0-2.8); Alkaline Phosphatase 52 U/L (38-126); Aspartate Aminotransferase 54 IU/L (17-59); Bilirubin Total 0.8 mg/dL (0.2-1.3); Bilirubin Unconjugated 0.5 mg/dL (0.0-1.1); Globulin 2.4 g/dL (1.7-4.1); HEMOLYSIS 26 (0-50); Total Protein 5.4 g/dL (6.3-8.2)
[2019-08-04 06:25] LABS: BUN Creatinine Ratio 14.4 (6-22); Blood Urea Nitrogen 13 mg/dL (9-20); Calcium 7.5 mg/dL (8.4-10.2); Carbon Dioxide 26 mmol/L (22-32); Chloride 103 mmol/L (98-107); Estimated Glomerular Filt Rate > 60.0 mL/min (>60); Glucose 115 mg/dL (70-100); HEMOLYSIS < 15 (0-50); Magnesium 2.5 mg/dL (1.6-2.3); Phosphorous 2.2 mg/dL (2.5-4.5); Potassium 3.7 mmol/L (3.4-5.1); Sodium 136 mmol/L (137-145)
[2019-08-04 07:02] LABS: Procalcitonin 0.16 ng/mL (<0.5)
[2019-08-04] MEDS: ACETAMINOPHEN 325 MG TABLET 650 MG PO (07:05)
[2019-08-04] MEDS: IBUPROFEN 600 MG TABLET PO (07:05)
[2019-08-04 07:12] VITALS: O2SAT 95
[2019-08-04] MEDS: OSELTAMIVIR 75 MG CAPSULE PO (08:07)
[2019-08-04] MEDS: ENOXAPARIN 40 MG/0.4 ML SYRINGE SUBCUT (08:07)
--- NOTE | 2019-08-04 10:11 | CM.DPC ---
DCP: continued: case discussed in Team Rounds with Dr. Islas stating that pt feels much improved and is insisting on a d/c today. He agrees that this is appropriate and has put the d/c orders in place.
--- NOTE | 2019-08-04 12:44 | PC.NURSE ---
Discharge: Called to room by saying he wanted to be d/c to home. called and he wrote for same and gave instructions to pt. Rx has been e sent to pharmacy. Reviewed d/c packet, informatio for flu. Pt given a couple of masks for while he is outside and around others, he knows how to buy more if needed. They are not needed in his own home. Questions answered. Pt d/c to home via auto w/brother.
== END 2019-08-04 10:40 | disposition home or self-care (01) | DRG 871 ==
LOC: ED 12:56 → AC 15:36
PROVIDERS: Admitting Provider Internal Medicine; Emergency Provider Emergency Medicine; Visit Provider Internal Medicine
DX: A41.89 Other specified sepsis (principal); G93.41 Metabolic encephalopathy; J96.01 Acute respiratory failure with hypoxia; J10.1 Influenza due to other identified influenza virus with other respiratory manifestations; B97.89 Other viral agents as the cause of diseases classified elsewhere; R65.20 Severe sepsis without septic shock; R40.2362 Coma scale, best motor response, obeys commands, at arrival to emergency department; R40.2132 Coma scale, eyes open, to sound, at arrival to emergency department; R40.2242 Coma scale, best verbal response, confused conversation, at arrival to emergency department; N13.9 Obstructive and reflux uropathy, unspecified; R73.03 Prediabetes
CPT/HCPCS: 36415; 36600; 51701; 51798; 71045; 80048; 80053; 80076; 81001; 82805; 83036; 83605; 83735; 84100; 84145; 85025; 87040; 87502; 94640; 96360; 96361; 99283; 99285; J1650; J2405

== ENCOUNTER 2019-08-31 09:29 | Inpatient (IN) | payer OTHER, SELFPAY ==
[2019-08-02 15:45] VITALS: BMI 31.0
[2019-08-31] VITALS (14 sets, daily range): BP systolic 129–161; BP diastolic 63–95; PULSE 66–112; RESP 14–90; TEMP 36.3–37.8; O2SAT 90–99; BMI 31.0; BMI 30.7
--- NOTE | 2019-08-31 09:37 | ED_ITS ---
HPI - URI/Sore Throat General Chief Complaint: Upper Respiratory Symptoms Stated Complaint: cough,shortness of breath,chest congestion Time Seen by Provider: 08/31/19 09:30 Source: patient Mode of arrival: Wheelchair Limitations: no limitations History of Present Illness HPI Narrative: 54-year-old male no significant medical history presents with persistent cough for the past 3 weeks but wheezing over the course of the day. He denies any history of smoking or asthma. He was admitted on August 02 for flu and discharged a day or 2 later. As stated, his cough persists but today he started developing wheeze. He has some sharp and stabbing chest pain with cough and deep inspiration. He denies cardiac equivalent such as dizziness, weakness or lightheadedness. He denies radiation of his pain, exertional provocation, diaphoresis or other. He has had no nausea or vomiting and denies any diarrhea. He denies change in urinary habits such as dysuria, frequency or urgency. He was seen at the walk-in clinic in [place] a few days ago had a negative chest x-ray and was sent on Mart Mehta MD Complaint: cough Onset (ago): hour(s) Duration: constant Severity: moderate Relieving factors: nothing Exacerbating factors: nothing Able to tolerate fluids by mouth: Yes Associated symptoms: cough Treatments prior to arrival: none Related Data Previous Rx's Medication Instructions Recorded ondansetron 4 mg PO Q8H PRN 30 Days #30 each 08/04/19 oseltamivir [Tamiflu] 75 mg PO BID 5 Days #10 cap 08/04/19 Allergies Allergy/AdvReac Type Severity Reaction Status Date / Time allopurinol [ALLOPURINOL] Allergy Unknown Verified 08/31/19 09:37 Review of Systems Review of Systems ROS Unobtainable: All systems reviewed & are unremarkable except as noted in HPI and below Constitutional Constitutional: Denies chills, Denies fatigue, Denies fever(s), Denies frequent falls, Denies lethargy and Denies weakness Eyes Eyes: Denies change in vision, Denies eye discharge, Denies irritation and Denies loss of vision ENT Ears, Nose, Mouth, and Throat: Denies change in voice, Denies dizziness, Denies neck pain, Denies sore throat and Denies throat swelling Cardiovascular Cardiovascular: Denies chest pain, Denies irregular heart rhythm, Denies lightheadedness, Denies palpitations, Denies dyspnea, Denies dyspnea on exertion and Denies orthopnea Respiratory Respiratory: Reports cough, Denies dyspnea, Denies dyspnea on exertion and Reports wheezing Gastrointestinal Gastrointestinal: Denies abdominal pain, Denies change in bowel habits, Denies diarrhea, Denies nausea and Denies vomiting Genitourinary Genitourinary: Denies hematuria, Denies flank pain, Denies urinary incontinence and Denies urinary urgency Musculoskeletal Musculoskeletal: Denies back pain, Denies muscle weakness, Denies neck pain, Denies numbness and Denies tingling Integumentary/Breasts Skin/Breast: Denies pruritus, Denies erythema, Denies rash and Denies wounds Neurologic Neurologic: Denies behavioral changes, Denies confusion, Denies dizziness, Denies frequent falls, Denies loss of vision, Denies numbness, Denies tingling and Denies weakness Psychiatric Psychiatric: Denies anxiety, Denies behavioral changes, Denies confusion, Denies depression, Denies homicidal ideation and Denies suicidal ideation Endocrine Endocrine: Denies fatigue, Denies flushing and Denies palpitations Hematologic/Lymphatic Hematologic/Lymphatic: Denies easy bruising Allergic/Immunologic Allergic/Immunologic: Denies urticaria, Denies throat swelling and Reports wheezing Patient History Social History household members: significant other Smoking Status: Never smoker alcohol intake: never Smoking Status: Never smoker alcohol intake frequency: 0-2 drinks per day Substance Use Type: does not use Exam Narrative Exam Narrative: GENERAL: [54] year old patient appears stated age. Well- nourished, well-developed patient, in mild distress. No significant respiratory distress HEAD: Atraumatic. Normocephalic. EYES: Pupils equal round and reactive. Extraocular motions intact. No scleral icterus. No injection or drainage. ENT: Nose without bleeding, purulent drainage. Throat without erythema, tonsillar hypertrophy or exudate. Airway patent. NECK: Trachea midline. Non tender CARDIOVASCULAR: Regular rate and rhythm without murmurs, gallops, or rubs. RESPIRATORY: Expiratory wheeze in all ir[place], no rales or rhonchi. Good effort GASTROINTESTINAL: Abdomen soft, non-tender, nondistended. EXTREMITIES: No edema or joint tenderness. BACK: Nontender without deformity or crepitance. No flank tenderness. NEURO: AOx3. SKIN: No rash or erythema of visible areas Initial Vital Signs Initial Vital Signs: Vital Signs Temperature 98.4 F 08/31/19 09:34 Pulse Rate 92 H 08/31/19 09:34 Respiratory Rate 24 08/31/19 09:34 Blood Pressure 142/81 H 08/31/19 09:34 Pulse Oximetry 97 08/31/19 09:34 Course Orders Ordered: ED Orders 08/31/19 05:00 Hemoglobin and Hematocrit DAILY 08/31/19 09:40 Consult to Respiratory Therapy Evaluate & Treat EKG-12 Lead Stat 08/31/19 09:41 XR chest 2V Stat 08/31/19 09:55 B Type Natriuretic Peptide Stat Basic Metabolic Panel Stat Complete Blood Count AUTO DIFF Stat D Dimer Stat Lactate (Lactic Acid) Stat Magnesium Stat Procalcitonin Stat Troponin & CK Cardiac Panel Stat 08/31/19 10:22 Blood Culture Stat 08/31/19 10:46 CT angio chest PE protocol Stat 08/31/19 11:15 PTT [Partial Thromboplastin Time] Q6H 08/31/19 11:35 Partial Thromboplastin Time Stat 08/31/19 17:15 PTT [Partial Thromboplastin Time] Q6H 08/31/19 23:15 PTT [Partial Thromboplastin Time] Q6H 09/01/19 05:00 Hemoglobin and Hematocrit DAILY 09/01/19 05:15 PTT [Partial Thromboplastin Time] Q6H Discontinued Medications Albuterol/Ipratropium (Duoneb) 3 ml INH NOW ONE Stop: 08/31/19 09:41 Last Admin: 08/31/19 09:46 Dose: 3 ml Documented by: MARNIE Enoxaparin Sodium (Lovenox) 95 mg 1 mg/kg (95 mg) SUBCUT NOW ONE Stop: 08/31/19 11:41 Heparin Sodium (Porcine) (Heparin) 7,600 unit 80 unit/kg (7600 unit) IV NOW ONE Stop: 08/31/19 11:14 Sodium Chloride (Normal Saline 0.9%) 1,000 mls @ 1,000 mls/hr IV BOLUS ONE Stop: 08/31/19 10:39 Last Admin: 08/31/19 10:05 Dose: 1,000 mls/hr Documented by: HFARRINGTO Heparin Sodium/Dextrose (Heparin Drip) 25,000 unit in 500 mls @ 34.291 mls/hr IV CONT CARMEN; Protocol Methylprednisolone (Solu-Medrol 125 Mg Vial) 125 mg IV NOW ONE Stop: 08/31/19 09:41 Last Admin: 08/31/19 10:05 Dose: 125 mg Documented by: HFARRINGTO Consultations Consultation #1: Dr. Zimmer happy to accept on her service. requests Lovenox in lieu of heparin. Order changed prior to administration of heparin bolus. Family and patient aware of and in agreement of plan Vital Signs Vital signs: Vital Signs - 8 hr 08/31/19 09:34 08/31/19 09:46 08/31/19 10:00 Temperature 98.4 F Pulse Rate 92 H 94 H 97 H Respiratory Rate 24 14 23 Blood Pressure 142/81 H Blood Pressure [Left Arm] 161/89 H Pulse Oximetry 97 97 95 08/31/19 11:00 Temperature Pulse Rate 66 Respiratory Rate 18 Blood Pressure Blood Pressure [Left Arm] 140/63 Pulse Oximetry 94 MDM - URI/Sore Throat Lab Data Result diagrams: 08/31/19 09:55 08/31/19 09:55 Labs: Lab Results 08/31/19 08/31/19 08/31/19 Range/Units 09:55 09:55 09:55 WBC 13.7 H (4.5-11.0) X10^3/uL RBC 3.73 L (4.5-5.9) X10^6/uL Hgb 12.2 L (13.5-17.5) g/dL Hct 34.6 L (41-53) % MCV 92.8 (80-100) fL MCH 32.8 (26-34) PG MCHC 35.3 (30-36) % RDW 13.0 (11.6-14.8) % Plt Count 366 (150-400) X10^3/uL Neut % (Auto) 58.4 (50-75) % Lymph % (Auto) 21.7 L (25-40) % [place] % (Auto) 7.5 (3-14) % Eos % (Auto) 11.6 H (2-4) % Baso % (Auto) 0.8 (0-2) % Neut # (Auto) 8000 H (7732-8003) /uL Lymph # (Auto) 3000 (2174-2460) /uL [place] # (Auto) 1000 H (0-900) /uL Eos # (Auto) 1600 H (0-450) /uL Baso # (Auto) 100 (0-100) /uL D-Dimer 2490 H (<230) ng/mL Sodium 139 (137-145) mmol/L Potassium 4.0 (3.4-5.1) mmol/L Chloride 106 (98-107) mmol/L Carbon Dioxide 26 (22-32) mmol/L BUN 16 (9-20) mg/dL Creatinine 0.90 (0.66-1.25) mg/dL Estimated GFR > 60.0 (>60) mL/min BUN/Creatinine Ratio 17.8 (6-22) Glucose 128 H (70-100) mg/dL Lactate (0.7-2.1) mmol/L Calcium 9.0 (8.4-10.2) mg/dL Magnesium 2.0 (1.6-2.3) mg/dL Total Creatine Kinase 114 (55-170) U/L CK-MB (CK-2) 1.09 (<2.37) ng/mL CK-MB (CK-2) Rel Index 1.0 L (1.5-5.0) % Troponin I < 0.012 (0.01-0.034) ng/mL B-Natriuretic Peptide < 100 (<100) Procalcitonin (<0.5) ng/mL 08/31/19 08/31/19 Range/Units 09:55 09:55 WBC (4.5-11.0) X10^3/uL RBC (4.5-5.9) X10^6/uL Hgb (13.5-17.5) g/dL Hct (41-53) % MCV (80-100) fL MCH (26-34) PG MCHC (30-36) % RDW (11.6-14.8) % Plt Count (150-400) X10^3/uL Neut % (Auto) (50-75) % Lymph % (Auto) (25-40) % [place] % (Auto) (3-14) % Eos % (Auto) (2-4) % Baso % (Auto) (0-2) % Neut # (Auto) (6346-5624) /uL Lymph # (Auto) (9658-7086) /uL [place] # (Auto) (0-900) /uL Eos # (Auto) (0-450) /uL Baso # (Auto) (0-100) /uL D-Dimer (<230) ng/mL Sodium (137-145) mmol/L Potassium (3.4-5.1) mmol/L Chloride (98-107) mmol/L Carbon Dioxide (22-32) mmol/L BUN (9-20) mg/dL Creatinine (0.66-1.25) mg/dL Estimated GFR (>60) mL/min BUN/Creatinine Ratio (6-22) Glucose (70-100) mg/dL Lactate 1.1 (0.7-2.1) mmol/L Calcium (8.4-10.2) mg/dL Magnesium (1.6-2.3) mg/dL Total Creatine Kinase (55-170) U/L CK-MB (CK-2) (<2.37) ng/mL CK-MB (CK-2) Rel Index (1.5-5.0) % Troponin I (0.01-0.034) ng/mL B-Natriuretic Peptide (<100) Procalcitonin < 0.05 (<0.5) ng/mL Imaging Data CT scan - chest: Radiologist's Impression: Patient: Noble Garcia FMR#: [id number] : 1965Acct:[id number] Age/Sex: 54 / MDate of Service: 08/31/19 Loc: ED Accession Number: [id number] Procedure: CT angio chest PE protocol Ordering Provider: Tunde Griffith D.O. PROCEDURE: CT ANGIO CHEST PE PROTOCOL INDICATIONS: sudden SOB, recent hospitalization, critical DDimer TECHNIQUE: After the administration of intravenous contrast, 2 mm thick sections acquired f rom the pulmonary apices to the posterior costophrenic angles. 3-dimensional maximum intensity projection (MIP) coronal and sagittal reformats were then acquired through the thorax. For radiation dose reduction, the following was used: automated exposure control, adjustment of mA and/or kV according to patient size. COMPARISON: [facility], CR, XR CHEST 2V, 08/31/2019, 10:36. FINDINGS: Image quality: Diagnostic. Pulmonary arteries: Multiple intraluminal filling defects within the right pulmonary arteries are evident. There is thrombus evident at the division between the right middle, right upper, and right lower lobe pulmonary arteries with emboli extending predominantly within the right upper lobe and right lower lobe arteries. There also are as small emboli in evident within the left lower lobe pulmonary arteries and potentially also within the left upper lobe pulmonary arteries. No significant bowing of the interatrial septum is evident. Lungs and pleura: There is a moderate-sized left-sided pleural effusion with associated bibasilar consolidation. Again, there is no bowing of the interatrial septum to suggest right heart strain. Patchy airspace disease is identified throughout the lungs that is predominantly seen within the right lung and is located near the pleural surface, suggesting scattered small foci of pulmonary infarctions. Posterior right cost ophrenic angle atelectasis is evident. There is no lung mass or definite pulmonary nodule. However, evaluation for pulmonary nodules is suboptimal on this exam from a technical standpoint. Mediastinum: Heart size is mildly enlarged, without pericardial effusion. No mediastinal or hilar adenopathy. Thoracic aorta is normal in caliber and enhancement. Esophagus is normal in caliber, without hiatal hernia. Coronary and aortic atherosclerosis is present. Bones and chest wall: No suspicious bony lesions. Ribs and thoracic spine appear intact throughout. Thyroid gland is not enlarged or adequately evaluated. No axillary or supraclavicular adenopathy. Abdomen: Visualized upper abdominal solid organs appear normal in the early arterial phase of enhancement. IMPRESSION: 1. Bilateral pulmonary emboli (right greater than left) with a subjectively moderate embolic load. No CT evidence of right heart strain. 2. Small scattered subpleural areas of pulmonary infarction. 3. Moderate size left-sided pleural effusion with associated atelectasis. There is also mild atelectasis within the posterior right lung base. Superimposed infection cannot be excluded, but is felt to be less likely. 4. Cardiomegaly. Note: Clinical findings were discussed with Dr. Griffith at 1112 hours (PST) on 08/31/19. Dictated by: Shayan Jennings M.D. on 08/31/2019 at 10:11 Approved by: Shayan Jennings M.D. on 08/31/2019 at 10:18 MDM Narrative Medical decision making narrative: 54-year-old male with recent hospitalization presents with change in respiratory status including sudden onset wheeze today, but persistent cough for the past few weeks. Only risk factors for PE are recent hospitalization. CT notes large, widespread bilateral PEs but no evidence of strain on imaging, EKG or with laboratory values. Patient is not in any obvious significant respiratory distress and is not a candidate for transfer or catheter directed lysis, however he will require hospitalization given the severity of his diagnosis and potential for decline. He will require anticoagulation and stabilization. Discharge Plan Departure Patient Disposition: Admitted as Observation Clinical Impression: Pulmonary embolism Qualifiers: Pulmonary embolism type: unspecified Chronicity: acute Acute cor pulmonale presence: without acute cor pulmonale Qualified Code(s): I26.99 - Other pulmonary embolism without acute cor pulmonale Discharge Date/Time: 08/31/19 11:47 Admit Date/Time: 08/31/19 11:43 Admit Provider: Anum Zimmer
--- NOTE | 2019-08-31 09:41 | DI.RAD.S_ITS ---
PROCEDURE: XR CHEST 2V INDICATIONS: cough, wheeze, SOB, recent flu TECHNIQUE: 2 views of the chest were acquired. COMPARISON: [facility], CT, CT ANGIO CHEST PE PROTOCOL, 08/31/2019, 10:34. [facility], CR, XR CHEST 2 VIEWS, 08/27/2019, 15:12. FINDINGS: Surgical changes and devices: None. Lungs and pleura: Date areas of groundglass attenuation appear to be present along the periphery of both lungs. No lobar consolidation is evident or large area of pulmonary consolidation. There is a small moderate size left-sided pleural effusion, which is probably unchanged since the prior study. There is no pneumothorax. Mediastinum: Mediastinal contours are normal. The heart appears to be normal in size on this study, but appears enlarged on the CT. Bones and chest wall: No suspicious bony abnormalities. Soft tissues appear unremarkable. IMPRESSION: 1. Vague subpleural airspace disease is suggestive of pulmonary infarctions given the patient's pulmonary emboli and appearance on the recent CT. 2. Left-sided pleural effusion. Dictated by: Shayan Jennings M.D. on 08/31/2019 at 10:18 Approved by: Shayan Jennings M.D. on 08/31/2019 at 10:20
[2019-08-31] MEDS: ALBUTEROL/IPRATROPIUM 3 ML AMPUL INH (09:46)
[2019-08-31] MEDS: SODIUM CHLORIDE 0.9% 1,000 ML 1000 ML IV (10:05)
[2019-08-31] MEDS: methylPREDNISolone 125 MG/2 ML VIAL IV (10:05)
[2019-08-31 10:06] LABS: Add Manual Diff / Slide Review NO; Basophils Absolute Auto 100 /uL (0-100); Basophils Percent Auto 0.8 % (0-2); Eosinophils Absolute Auto 1600 /uL (0-450); Eosinophils Percent Auto 11.6 % (2-4); Hematocrit 34.6 % (41-53); Hemoglobin 12.2 g/dL (13.5-17.5); Lymphocytes Absolute Auto 3000 /uL (1100-4500); Lymphocytes Percent Auto 21.7 % (25-40); Mean Corpuscular HGB Conc 35.3 % (30-36); Mean Corpuscular Hemoglobin 32.8 PG (26-34); Mean Corpuscular Volume 92.8 fL (80-100); Monocytes Absolute Auto 1000 /uL (0-900); Monocytes Percent Auto 7.5 % (3-14); Neutrophils Absolute Auto 8000 /uL (1500-7000); Neutrophils Percent Auto 58.4 % (50-75); Platelet Count 366 X10^3/uL (150-400); Red Blood Cell Count 3.73 X10^6/uL (4.5-5.9); White Blood Cell Count 13.7 X10^3/uL (4.5-11.0)
[2019-08-31 10:14] LABS: Lactate (Lactic Acid) 1.1 mmol/L (0.7-2.1)
[2019-08-31 10:17] LABS: BUN Creatinine Ratio 17.8 (6-22); Blood Urea Nitrogen 16 mg/dL (9-20); Carbon Dioxide 26 mmol/L (22-32); Chloride 106 mmol/L (98-107); Creatine Kinase 114 U/L (55-170); Estimated Glomerular Filt Rate > 60.0 mL/min (>60); Glucose 128 mg/dL (70-100); HEMOLYSIS < 15 (0-50); Sodium 139 mmol/L (137-145)
[2019-08-31 10:19] LABS: D Dimer 2490 ng/mL (<230)
[2019-08-31 10:28] LABS: Troponin I < 0.012 ng/mL (0.01-0.034)
[2019-08-31 10:31] LABS: Creatine Kinase MB 1.09 ng/mL (<2.37)
[2019-08-31 10:32] LABS: Procalcitonin < 0.05 ng/mL (<0.5)
[2019-08-31 10:34] LABS: B Type Natriuretic Peptide < 100 (<100)
--- NOTE | 2019-08-31 10:46 | DI.CT.S_ITS ---
PROCEDURE: CT ANGIO CHEST PE PROTOCOL INDICATIONS: sudden SOB, recent hospitalization, critical DDimer TECHNIQUE: After the administration of intravenous contrast, 2 mm thick sections acquired from the pulmonary apices to the posterior costophrenic angles. 3-dimensional maximum intensity projection (MIP) coronal and sagittal reformats were then acquired through the thorax. For radiation dose reduction, the following was used: automated exposure control, adjustment of mA and/or kV according to patient size. COMPARISON: [facility], CR, XR CHEST 2V, 08/31/2019, 10:36. FINDINGS: Image quality: Diagnostic. Pulmonary arteries: Multiple intraluminal filling defects within the right pulmonary arteries are evident. There is thrombus evident at the division between the right middle, right upper, and right lower lobe pulmonary arteries with emboli extending predominantly within the right upper lobe and right lower lobe arteries. There also are as small emboli in evident within the left lower lobe pulmonary arteries and potentially also within the left upper lobe pulmonary arteries. No significant bowing of the interatrial septum is evident. Lungs and pleura: There is a moderate-sized left-sided pleural effusion with associated bibasilar consolidation. Again, there is no bowing of the interatrial septum to suggest right heart strain. Patchy airspace disease is identified throughout the lungs that is predominantly seen within the right lung and is located near the pleural surface, suggesting scattered small foci of pulmonary infarctions. Posterior right costophrenic angle atelectasis is evident. There is no lung mass or definite pulmonary nodule. However, evaluation for pulmonary nodules is suboptimal on this exam from a technical standpoint. Mediastinum: Heart size is mildly enlarged, without pericardial effusion. No mediastinal or hilar adenopathy. Thoracic aorta is normal in caliber and enhancement. Esophagus is normal in caliber, without hiatal hernia. Coronary and aortic atherosclerosis is present. Bones and chest wall: No suspicious bony lesions. Ribs and thoracic spine appear intact throughout. Thyroid gland is not enlarged or adequately evaluated. No axillary or supraclavicular adenopathy. Abdomen: Visualized upper abdominal solid organs appear normal in the early arterial phase of enhancement. IMPRESSION: 1. Bilateral pulmonary emboli (right greater than left) with a subjectively moderate embolic load. No CT evidence of right heart strain. 2. Small scattered subpleural areas of pulmonary infarction. 3. Moderate size left-sided pleural effusion with associated atelectasis. There is also mild atelectasis within the posterior right lung base. Superimposed infection cannot be excluded, but is felt to be less likely. 4. Cardiomegaly. Note: Clinical findings were discussed with Dr. Grififth at 1112 hours (PST) on 08/31/19. Dictated by: Shayan Jennings M.D. on 08/31/2019 at 10:11 Approved by: Shayan Jennings M.D. on 08/31/2019 at 10:18
[2019-08-31 11:53] LABS: PTT Partial Thromboplastin Tim 30 SECONDS (26.4-36.2)
[2019-08-31] MEDS: ENOXAPARIN 100 MG/ML SYRINGE 95 MG SUBCUT ×2 (12:14→22:11)
--- NOTE | 2019-08-31 14:13 | DI.US.S_ITS ---
PROCEDURE: US PERIPH VENOUS LOW EXTREM BI INDICATIONS: BILAT LEG SWELLING, R/O DVT TECHNIQUE: Real-time imaging, as well as color and pulse Doppler interrogation, were performed of the deep veins of both legs from the inguinal ligament to the popliteal fossa. COMPARISON: None. FINDINGS: Right: The common femoral, femoral and popliteal veins are normally compressible, and free of intraluminal thrombus. Color and pulse Doppler demonstrate normal phasic intravascular flow. There is normal augmentation response to distal compression maneuver. Left: The common femoral, femoral and popliteal veins are normally compressible, and free of intraluminal thrombus. Color and pulse Doppler demonstrate normal phasic intravascular flow. There is normal augmentation response to distal compression maneuver. Other: Bilateral popliteal cysts are incidentally noted. IMPRESSION: No evidence of deep vein thrombosis of the bilateral lower kidneys. Dictated by: Shayan Jennings M.D. on 08/31/2019 at 15:06 Approved by: Shayan Jennings M.D. on 08/31/2019 at 15:07
--- NOTE | 2019-08-31 14:19 | P.HP_ITS ---
History of Present Illness History of Present Illness Date Patient Seen: 08/31/19 Chief complaint: cough,shortness of breath,chest congestion Narrative: The patient is a 54-year-old male who was admitted to the hospital in July of this year for influenza a. The patient states that after leaving the hospital he felt significantly improved. About 2-3 days prior to this admission he developed shortness of breath and cough. His cough was severe and progressive. He was seen in urgent care over the weekend no significant improvement. He presented to the emergency department today with complaints of shortness of breath and cough. The patient was wheezing in the emergency department. He was given methylprednisolone and nebulizer treatments. Chest x- ray was unremarkable. It the patient had a CT angio which documented bilateral pulmonary embolus. He is admitted to the hospital at this time for inpatient treatment. Patient History Medical History (Updated 08/31/19 @ 14:24 by Anum Zimmer MD) Influenza A (Inactive) Family & Social History Family History (Updated 08/31/19 @ 14:25 by Anum Zimmer MD) Mother Lung cancer Social History: household members significant other Safety & Behavioral: Feels Safe in Current Yes Environment Been Physically Hurt or No Threatened By a Person Tobacco & Substance use: Smoking Status Never smoker alcohol intake never alcohol intake frequency 0-2 drinks per day Substance Use Type does not use Meds Home Medications and Allergies Home Medications Medication Instructions Recorded Confirmed Type No Known Home Medications 08/31/19 08/31/19 History Allergies Allergy/AdvReac Type Severity Reaction Status Date / Time allopurinol [ALLOPURINOL] Allergy Unknown Verified 08/31/19 09:37 Review of Systems Review of Systems Narrative: Patient reports bilateral swelling of his lower extremity, he complains of pain in the right ankle. He states that he fractured his ankle home many years ago in every winter gets significant pain. His no dysuria hematuria pyuria. No fever chills. He has had shortness of breath and cough as described above. Exam Vital Signs (past 8 hours): - 08/31/19 09:34 08/31/19 09:46 08/31/19 10:00 Temperature 98.4 F Pulse Rate 92 H 94 H 97 H Respiratory Rate 24 14 23 Blood Pressure 142/81 H Blood Pressure [Left Arm] 161/89 H Pulse Oximetry 97 97 95 08/31/19 11:00 08/31/19 12:00 08/31/19 12:34 Temperature Pulse Rate 66 98 H 99 H Respiratory Rate 18 17 18 Blood Pressure Blood Pressure [Left Arm] 140/63 148/93 H 136/94 H Pulse Oximetry 94 99 94 08/31/19 12:54 08/31/19 13:00 08/31/19 13:25 Temperature Pulse Rate 97 H 95 H 112 H Respiratory Rate 17 23 17 Blood Pressure 140/88 Blood Pressure [Left Arm] 136/94 H 140/88 Pulse Oximetry 94 97 94 08/31/19 13:35 Temperature 97.4 F L Pulse Rate 84 Respiratory Rate 18 Blood Pressure 138/75 Blood Pressure [Left Arm] Pulse Oximetry 95 Oxygen Delivery Method Room Air Oxygen Flow Rate 0 Narrative Exam Narrative: Pleasant gentleman resting comfortably in no obvious distress HEENT: Normocephalic atraumatic, extraocular muscles are intact, oropharynx is clear, neck is supple Lungs decreased breath sounds with occasional scattered wheezing Cardiac exam: Regular rate and rhythm normal S1-S2 with a 2/6 systolic ejection murmur Abdomen: Soft nontender nondistended there's mild tenderness in the left upper quadrant no rebound tenderness no board-like rigidity no palpable mass Neuro exam: Nonfocal Psychiatric exam: Patient is lethargic but easily arousable, his tearful when discussing family history he has no hallucinations. Objective Labs Result Diagrams: 08/31/19 09:55 08/31/19 09:55 Labs: Laboratory Results - last 24 hr 08/31/19 08/31/19 08/31/19 09:55 09:55 09:55 WBC 13.7 H RBC 3.73 L Hgb 12.2 L Hct 34.6 L MCV 92.8 MCH 32.8 MCHC 35.3 RDW 13.0 Plt Count 366 Neut % (Auto) 58.4 Lymph % (Auto) 21.7 L [place] % (Auto) 7.5 Eos % (Auto) 11.6 H Baso % (Auto) 0.8 Neut # (Auto) 8000 H Lymph # (Auto) 3000 [place] # (Auto) 1000 H Eos # (Auto) 1600 H Baso # (Auto) 100 APTT D-Dimer 2490 H Sodium 139 Potassium 4.0 Chloride 106 Carbon Dioxide 26 BUN 16 Creatinine 0.90 Estimated GFR > 60.0 BUN/Creatinine Ratio 17.8 Glucose 128 H Lactate Calcium 9.0 Magnesium 2.0 Total Creatine Kinase 114 CK-MB (CK-2) 1.09 CK-MB (CK-2) Rel Index 1.0 L Troponin I < 0.012 B-Natriuretic Peptide < 100 Procalcitonin 08/31/19 08/31/19 08/31/19 09:55 09:55 11:35 WBC RBC Hgb Hct MCV MCH MCHC RDW Plt Count Neut % (Auto) Lymph % (Auto) [place] % (Auto) Eos % (Auto) Baso % (Auto) Neut # (Auto) Lymph # (Auto) [place] # (Auto) Eos # (Auto) Baso # (Auto) APTT 30 D-Dimer Sodium Potassium Chloride Carbon Dioxide BUN Creatinine Estimated GFR BUN/Creatinine Ratio Glucose Lactate 1.1 Calcium Magnesium Total Creatine Kinase CK-MB (CK-2) CK-MB (CK-2) Rel Index Troponin I B-Natriuretic Peptide Procalcitonin < 0.05 Assessment & Plan Assessment & Plan narrative: Impression 1. 54-year-old male with a recent history of influenza a admitted to the hospital with this time for bilateral pulmonary emboli -patient is currently oxygenating well and does not require oxygen -there is no evidence of right heart strain on CT angio -CT angio findings Bilateral pulmonary emboli (right greater than left) with a subjectively moderate embolic load. No CT evidence of right heart strain. 2. Small scattered subpleural areas of pulmonary infarction. 3. Moderate size left-sided pleural effusion with associated atelectasis. There is also mild atelectasis within the posterior right lung base. Superimposed infection cannot be excluded, but is felt to be less likely. Despite pleural effusion no hypoxia therefore will defer thoracentesis at this time -given bilateral pedal edema with chronic pain in the right lower extremity will obtain a duplex of the bilateral lower extremities to rule out DVT -given bilateral pulmonary emboli if the DVT present will discuss with interventional radiology whether IVC filter would be indicated -will obtain cardiac echo given cardiomegaly on exam and pitting edema bilaterally - Patient is a full code will note that is regular accordingly
[2019-08-31 14:31] LABS: PTT Partial Thromboplastin Tim 36 SECONDS (26.4-36.2)
[2019-08-31] MEDS: DEXTROSE 5%-0.9% NS 1,000 ML 100 ML IV (17:47)
[2019-08-31] MEDS: DOCUSATE 100 MG CAPSULE PO (21:06)
[2019-08-31] MEDS: IBUPROFEN 600 MG TABLET PO (21:06)
[2019-09-01] VITALS (7 sets, daily range): BP systolic 108–159; BP diastolic 78–87; PULSE 90–96; RESP 16–22; TEMP 36.6–37.2; O2SAT 85–99
--- NOTE | 2019-09-01 01:07 | PC.NURSE ---
Pt o2 sat at rest, asleep 86%. Instructed pt to take deep breaths, 02 sat briskly returned to 95%. Pt at rest and sat again at 85% on room air. Lung sound diminished in bases, no wheezes appreciated. Pt denies SOB at rest. Pt denies smoking history. Notified provider. New order to supplement o2 to maintain saturation 94%. Pt educated as to rationale and nasal cannula. Will monitor for SOB, changes in respiratory status. Pt risk for falls due to IV, baseline pain in left ankle I hurt it 30yrs ago. On SubQ lovenox for PE. Specific conversation and education provided regarding fall risk and risk of harm due to medication for PE. Pt stated understanding and teach back was done. Bed alarm on, yellow gown/socks, door marked, urinal/personal items at bedside. Will continue to reinforce education regarding fall risk with harm.
[2019-09-01] MEDS: DEXTROSE 5%-0.9% NS 1,000 ML 100 ML IV ×2 (02:53→12:58)
[2019-09-01 06:06] LABS: Add Manual Diff / Slide Review NO; Basophils Absolute Auto 0 /uL (0-100); Basophils Percent Auto 0.2 % (0-2); Eosinophils Absolute Auto 0 /uL (0-450); Eosinophils Percent Auto 0.1 % (2-4); Hematocrit 34.9 % (41-53); Lymphocytes Absolute Auto 2300 /uL (1100-4500); Lymphocytes Percent Auto 11.7 % (25-40); Mean Corpuscular HGB Conc 34.4 % (30-36); Mean Corpuscular Hemoglobin 32.2 PG (26-34); Mean Corpuscular Volume 93.6 fL (80-100); Monocytes Absolute Auto 1200 /uL (0-900); Monocytes Percent Auto 5.9 % (3-14); Neutrophils Absolute Auto 16300 /uL (1500-7000); Neutrophils Percent Auto 82.1 % (50-75); Platelet Count 384 X10^3/uL (150-400); Red Blood Cell Count 3.73 X10^6/uL (4.5-5.9); Red Cell Distribution Width 12.9 % (11.6-14.8); White Blood Cell Count 19.9 X10^3/uL (4.5-11.0)
[2019-09-01 06:07] LABS: PTT Partial Thromboplastin Tim 32 SECONDS (26.4-36.2)
[2019-09-01 06:11] LABS: BUN Creatinine Ratio 23.8 (6-22); Blood Urea Nitrogen 19 mg/dL (9-20); Calcium 8.9 mg/dL (8.4-10.2); Carbon Dioxide 25 mmol/L (22-32); Chloride 107 mmol/L (98-107); Estimated Glomerular Filt Rate > 60.0 mL/min (>60); Glucose 153 mg/dL (70-100); HEMOLYSIS < 15 (0-50); Potassium 4.4 mmol/L (3.4-5.1); Sodium 139 mmol/L (137-145)
[2019-09-01 06:22] LABS: B Type Natriuretic Peptide 171 (<100)
[2019-09-01 08:29] LABS: Procalcitonin < 0.05 ng/mL (<0.5)
[2019-09-01] MEDS: DOCUSATE 100 MG CAPSULE PO (10:30)
[2019-09-01] MEDS: ENOXAPARIN 100 MG/ML SYRINGE 95 MG SUBCUT (10:30)
--- NOTE | 2019-09-01 13:07 | CM.DPNOTE ---
Initial Discharge Planning Assessment Note: HOG HANDLER reviewed EMR and information discussed during team rounds. Payor: Nathaly PRESLEY. PCP: not listed in EMR. Pt presented to the ED yesterday with worsening cough, shortness of breath and chest congestion. He was just admitted last month for influenza, felt that he improved from that, then began to decline again with new symptoms. He was found to have bilateral pulmonary emboli and admitted inpt. HOG HANDLER met with pt to assess discharge needs/concerns. Pt states that he's feeling better and expresses having ample support through friends and family to assist him with his continued recovery at home. He declines the need for any resources, in-home services or DME at this time. HOG HANDLER encouraged pt to notify discharge planning staff should he change his mind and need assistance. Pt is anticipated to d/c later today, pending the results of his ECHO. D/C planning will continue to monitor. Discharge Planning/Care Management CM Discharge Assessment Start: 09/01/19 13:00 Freq: Status: Active Protocol: Document 09/01/19 13:01 DPL (Rec: 09/01/19 13:07 DPL [id number]) Discharge Planning Assessment Assigned Bus Transportation Manager HIEU Rodriguez DPOA/Assigned Designee Name None identified. Advance Directives? No History Provided By Patient,Medical Record Expected Length of Stay 1 Has Patient been admitted in last 30 No days? Comment Pt was admitted /2019 for influenza, he is just 2- days short of being admitted within the last 30-days. Prior Living Arrangements Mobile home Household Members significant other Type of transporation used prior to Drives own vehicle admit Independent with ADL's Yes Is patient alert and oriented? Yes Comment Pt denies the need for any additional assistance outside of family/friends once he returns home. He feels that he is improving and feeling much better. Caregiver for Another No Comment N/A Comment Declines the need for any DME post-discharge. Comment Pt declines the need for any in-home services or resources post-discharge. Barriers to Discharge No Discharge Plan Home Transportation Arrangement Significant other, or other family member Additional Comment N/A
--- NOTE | 2019-09-01 14:13 | DI.ECHO.S_ITS ---
[facility]---------+ [facility] +---------+ : : [address] : [place] : : : : [id number] : : : : Phone: [phone]+ Echocardiogram Report + + :Name: ISA GUEVARA Study Date: 09/01/2019 Height: 69 in : :[facility] Weight: 208 lb : : Gender: Male BSA: 2.1 m2 : :: 1965 Age: 54 yrs BP: 126/84 mmHg: :Reason For Study: Pulmonary- Embolism, Murmur : :Ordering Physician: Alfredito : :Hospitalist Performed By: Herminia Hill : :Referring: LUCI COLON : + + Interpretation Summary Normal left ventricle size with ejection fraction 50-55%. Probable mild inferior hypokinesis. Normal right ventricle size and function. Mildly dilated left atrium. No valvular abnormality. Procedure: A two-dimensional transthoracic echocardiogram with color flow and Doppler was performed. The study quality was technically adequate. There is no prior echocardiogram noted for this patient. The patient was in normal sinus rhythm during the exam. Left Ventricle: The left ventricle is normal in size. There is normal left ventricular wall thickness. There is no ventricular septal defect visualized. The ejection fraction is estimated to be 50-55%. There are no obvious focal wall motion abnormalities noted but poor endocardial definition reduces the sensitivity for the detection of such. Diastolic parameters suggest probable normal left ventricular diastolic function and normal filling pressures. Right Ventricle: The right ventricle is normal in size and function. Atria: The left atrium is mildly dilated. Right atrial size is normal. There is no Doppler evidence for an interatrial shunt. Mitral Valve: The mitral valve is normal in structure and function. There is trace mitral regurgitation. Aortic Valve: The aortic valve is normal in structure and function. No aortic regurgitation is present. Tricuspid Valve: The tricuspid valve is normal in structure and function. There is a trace or physiologic amount of tricuspid regurgitation. Right ventricular systolic pressure is estimated to be 27 mmHg plus the clinically estimated CVP which cannot be estimated on this exam. Pulmonic Valve: The pulmonic valve is not well seen, but is grossly normal. Great Vessels: The aortic root is normal size. The ascending aorta is normal in size. The pulmonary artery is normal size. The IVC has a measurement of 18 mm. Sniff test is not well visualized thus CVP cannot be accurately calculated. Pericardium/ Pleura There is no pericardial effusion. MMode/2D Measurements & Calculations LVIDd: 5.6 cm LVOT diam: 2.2 cm LVIDs: 4.0 cm Ao root diam: 3.4 cm FS: 27.7 % asc Aorta Diam: 3.1 cm IVSd: 0.77 cm LVPWd: 0.82 cm LV camacho. diameter/BSA (cm/m^2): 2.6 LV sys. diameter/BSA (cm/m^2): 1.9 LA A2 area: 20.8 cm2 RA long axis: 4.9 cm LA A4 area: 27.0 cm2 RA area: 17.1 cm2 LA length (vol): 5.8 cm RA vol: 51.0 ml LA vol: 81.5 ml RA : 24.3 ml/m2 LA vol index: 38.8 ml/m2 IVC diam: 1.8 cm RVD1 (basal): 3.8 cm RVD2 (mid): 2.9 cm TAPSE: 2.6 cm Doppler Measurements & Calculations Ao V2 max: 145.0 cm/sec LVOT Max Saqib: 81.1 cm/sec Ao V2 mean: 102.2 cm/sec LV V1 max P.6 mmHg Ao max P.4 mmHg LV V1 VTI: 15.7 cm Ao mean P.6 mmHg MARK(I,D): 2.4 cm2 Ao V2 VTI: 25.7 cm MARK(V,D): 2.2 cm2 sev ratio: 0.61 MARK indexed to BSA (cm^2/m^2): 1.2 MV E max saqib: 75.1 cm/sec TR max saqib: 261.2 cm/sec MV A max saqib: 76.6 cm/sec TR max P.3 mmHg MV E/A: 0.98 PA V2 max: 87.8 cm/sec Med Peak E' Saqib: 7.5 cm/sec PA V2 mean: 60.3 cm/sec E/E' med: 10.0 PA mean P.6 mmHg Lat Peak E' Saqib: 11.3 cm/sec PA Accel Time: 0.06 sec E/E' lat: 6.7 E/e' average: 8.4 MV dec time: 0.16 sec MV P1/2t: 46.7 msec MV P1/2t max saqib: 75.2 cm/sec SV(LVOT): 62.2 ml MVA(P1/2t): 4.7 cm2 Electronically signed by: Tona Pina on Reading Physician:09/01/2019 02:50 PM
--- NOTE | 2019-09-01 17:36 | PC.NURSE ---
Addendum entered by Amanda Caba R.N. 09/01/19 17:47: Clarification: Samantha is student nurse doing clinical time with this music writer this evening shift. Original Note: Discharge order per Dr. Hess. Pt independent in room able to dress self and toilet self independently. Heplock removed intact by Samantha with oversight by this RN. Tele removed after informing ICU of discharge. Discharge medications clarified with MD and pt given scripts as well as discharge instructions in written and verbal format. Questions answered as appropriate. Pt eats evening meal prior discharge. ASSOCIATE DIRECTOR FINANCE escort via wheelchair to E.R. entrance to await pt's brother's arrival to transport to home. All personal belongings accounted for. Pt left hospital in stable condition stating feeling better than upon admission.
--- NOTE | 2019-09-01 18:11 | P.DS_ITS ---
History of Present Illness History of Present Illness Date Patient Seen: 08/31/19 Chief complaint: cough,shortness of breath,chest congestion Narrative: Written by Dr. Zimmer: The patient is a 54-year-old male who was admitted to the hospital in July of this year for influenza a. The patient states that after leaving the hospital he felt significantly improved. About 2-3 days prior to this admission he developed shortness of breath and cough. His cough was severe and progressive. He was seen in urgent care over the weekend no significant improvement. He presented to the emergency department today with complaints of shortness of breath and cough. The patient was wheezing in the emergency department. He was given methylprednisolone and nebulizer treatments. Chest x-ray was unremarkable. It the patient had a CT angio which documented bilateral pulmonary embolus. He is admitted to the hospital at this time for inpatient treatment. Discharge Providers Provider Date of admission: 08/31/19 11:43 Discharge Date: 09/01/19 Consults: 08/31/19 09:40 Consult to Respiratory Therapy Evaluate & Treat Comment: Physician Instructions: Evaluate and treat Discharge provider: Zuleyka Hess DO Summary Hospital Course Discharge Diagnosis: 1. Acute provoked bilateral pulmonary emboli, present on admission. Resolving. 2. Elevated blood pressure without diagnosis of hypertension, present on admission. Stable. Hospital Course: Noble Garcia is a 54-year-old male with a recent history of influenza A requiring hospitalization who presented to the ED for progressive worsening shortness of breath and cough and was admitted to the hospital for bilateral pul monary emboli. 1. Acute provoked bilateral pulmonary emboli, present on admission. Resolving. -Patient was oxygenating well and did not require oxygen. Respiratory therapy performed home oxygen evaluation with activity for which patient did not desaturate and saturated well in the mid 90s. Patient does have intermittent desaturations during sleep and recommended outpatient sleep study to evaluate for obstructive sleep apnea. -CTA chest demonstrated bilateral pulmonary emboli (right greater than left) with a subjectively moderate embolic load, small scattered subpleural areas of pulmonary infarction, and moderate size left-sided pleural effusion with associated atelectasis. No CT evidence of right heart strain. -Despite pleural effusion no hypoxemia therefore thoracentesis deferred at this time. -Bilateral lower extremity venous Doppler ultrasound did not demonstrate any DVT. Patient complained of worsening pain in right lower extremity especially around the ankle that is now completely resolved and likely service support representative of previous DVT. -Echocardiogram unremarkable in demonstrated normal left ventricle size with ejection fraction 50-55%, probable mild inferior hypokinesis, normal right ventricle size and function, mildly dilated left atrium, no valvular abnormality. -Continued therapeutic Lovenox 95 mg subcu twice daily for 5 days total with bridge to Pradaxa 150 mg twice daily for 3 months for provoked PE. 2. Elevated blood pressure without diagnosis of hypertension, present on admission. Stable. -Patient had intermittently elevated blood pressure but average SBP 120s. -Continue to monitor outpatient per PCP and treat if continues to be elevated persistently. Exam Vital Signs (past 8 hours): - 09/01/19 13:00 09/01/19 16:08 Temperature 97.9 F 98.9 F Pulse Rate 90 96 H Respiratory Rate 20 22 Blood Pressure 145/87 H 159/78 H Pulse Oximetry 94 96 Oxygen Delivery Method Nasal Cannula Oxygen Flow Rate 1.5 Narrative Exam Narrative: General: Older gentleman resting in bed and in no acute distress, disheveled with poor hygiene, appears older than stated age, well-developed, well- nourished, appropriately interactive. HEENT: Normocephalic, atraumatic. External ears without defect. Pupils equal, round, and reactive to light. Anicteric sclerae, moist conjunctivae, and no lid lag. Oropharynx free of erythema and cobble stoning with moist mucosa. Poor dentition. Neck: Supple with full range of motion. No jugular venous distension. No lymphadenopathy or thyromegaly. Cardiovascular: Regular rate and rhythm without murmurs, rubs, or gallops appreciated. Pulmonary: Diminished throughout but clear to auscultation bilaterally with occasional wheeze at left base. No crackles or rhonchi. Normal respiratory effort with no use of accessory muscles. Abdomen: Soft, bowel sounds present, nontender, nondistended. No hepatosplenomegaly or masses appreciated. Extremities: No clubbing, cyanosis, or edema. Skin: Normal temperature, turgor, and texture; no rash, ulcers, or subcutaneous nodules appreciated. Neurological: Cranial nerves grossly intact. Psychiatric: Normal mood and flat affect. Alert and oriented to person, place, and time. Objective Labs Result Diagrams: 09/01/19 05:35 09/01/19 05:35 Labs: Laboratory Results - last 24 hr 09/01/19 09/01/1920 05:35 05:35 05:35 WBC 19.9 H RBC 3.73 L Hgb 12.0 L Hct 34.9 L MCV 93.6 MCH 32.2 MCHC 34.4 RDW 12.9 Plt Count 384 Neut % (Auto) 82.1 H D Lymph % (Auto) 11.7 L [place] % (Auto) 5.9 Eos % (Auto) 0.1 L Baso % (Auto) 0.2 Neut # (Auto) 13898 H Lymph # (Auto) 2300 [place] # (Auto) 1200 H Eos # (Auto) 0 Baso # (Auto) 0 APTT 32 D Sodium 139 Potassium 4.4 Chloride 107 Carbon Dioxide 25 BUN 19 Creatinine 0.80 Estimated GFR > 60.0 BUN/Creatinine Ratio 23.8 H Glucose 153 H Calcium 8.9 B-Natriuretic Peptide 171 H Procalcitonin 09/01/19 05:35 WBC RBC Hgb Hct MCV MCH MCHC RDW Plt Count Neut % (Auto) Lymph % (Auto) [place] % (Auto) Eos % (Auto) Baso % (Auto) Neut # (Auto) Lymph # (Auto) [place] # (Auto) Eos # (Auto) Baso # (Auto) APTT Sodium Potassium Chloride Carbon Dioxide BUN Creatinine Estimated GFR BUN/Creatinine Ratio Glucose Calcium B-Natriuretic Peptide Procalcitonin < 0.05 Discharge Plan Discharge Plan Patient Disposition: Home Discharge comment: You are being discharged home. You have pulmonary embolisms or blood clots in your lungs from being immobilized from your hospitalization for influenza infection. You have been prescribed Lovenox injections every 12 hours (9 AM and 9 PM) for 4 more days to start tomorrow 09/02/2019 and to end 09/05/2019. You will then the next morning 09/06/2019 start Pradaxa 150 mg twice daily (9 AM and 9 PM) and continue for 3 months. Discharge orders & Medications Prescriptions: New ibuprofen 600 mg Tablet 600 mg PO Q6HR PRN (Reason: Fever/Mild Pain (1-3)) Qty: 30 RF: 0 enoxaparin [Lovenox] 100 mg/mL Syringe 95 mg subcut BID Qty: 9 RF: 0 acetaminophen 325 mg Tablet 650 mg PO Q6HR PRN (Reason: Fever/Mild Pain (1-3)) Qty: 30 RF: 0 Pradaxa 150 mg capsule 150 mg PO BID Qty: 180 RF: 0 Other Ambulatory Orders: Complete Blood Count AUTO DIFF (Stat) Timeframe: 5 Days Facility: [facility] - Location: Laboratory Ordered By: Zuleyka Hess Procalcitonin (Routine) Timeframe: 5 Days Facility: [facility] - Location: Laboratory Ordered By: Zuleyka Hess Follow up/Referrals: Cole Arellano DO [Physician] - 09/11/19 10:00 am (Arrive 15 minutes early ) Diet/Activity/Treatments Diet: Low-fat, Low-sodium and Low-cholesterol Activity: Activity as tolerated Visit Report/Discharge Packet Instructions: Enoxaparin Injection, Dabigatran Visit Report Forms: Patient Portal/API, Stroke Signs & Symptoms Discharges patient from system. Discharge Date/Time: 09/01/19 17:39 Quality VTE Deep Vein Thrombosis/Pulmonary Embolism Present on Admission: Yes
== END 2019-09-01 17:39 | disposition home or self-care (01) | DRG 176 ==
LOC: ED 11:43 → AC 11:47
PROVIDERS: Internal Medicine; Admitting Provider Internal Medicine; Emergency Provider Emergency Medicine; Visit Provider Internal Medicine
DX: I26.99 Other pulmonary embolism without acute cor pulmonale (principal); J90 Pleural effusion, not elsewhere classified; R03.0 Elevated blood-pressure reading, without diagnosis of hypertension
CPT/HCPCS: 36415; 71046; 71275; 80048; 82550; 82553; 83605; 83735; 83880; 84145; 84484; 85025; 85379; 85730; 87040; 93005; 93306; 93970; 94618; 94640; 94760; 96361; 96372; 96374; 99284; J1650; J2930; Q9967

== ENCOUNTER → 2019-09-06 16:44 | Outpatient (CLI) | payer OTHER, SELFPAY ==
[2019-09-01 15:59] VITALS: BMI 30.7
[2019-09-06 16:58] LABS: Add Manual Diff / Slide Review NO; Basophils Absolute Auto 100 /uL (0-100); Basophils Percent Auto 0.7 % (0-2); Eosinophils Absolute Auto 1900 /uL (0-450); Eosinophils Percent Auto 14.6 % (2-4); Hematocrit 38.1 % (41-53); Lymphocytes Absolute Auto 3200 /uL (1100-4500); Lymphocytes Percent Auto 24.7 % (25-40); Mean Corpuscular HGB Conc 34.1 % (30-36); Mean Corpuscular Hemoglobin 31.6 PG (26-34); Mean Corpuscular Volume 92.6 fL (80-100); Monocytes Absolute Auto 900 /uL (0-900); Monocytes Percent Auto 7.2 % (3-14); Neutrophils Absolute Auto 6900 /uL (1500-7000); Neutrophils Percent Auto 52.8 % (50-75); Platelet Count 426 X10^3/uL (150-400); Red Blood Cell Count 4.11 X10^6/uL (4.5-5.9); Red Cell Distribution Width 13.3 % (11.6-14.8)
[2019-09-06 17:43] LABS: Procalcitonin < 0.05 ng/mL (<0.5)
--- NOTE | 2020-04-23 18:55 | P.DS_ITS ---
History of Present Illness History of Present Illness Date Patient Seen: 08/04/19 Time Patient Seen: 07:30 Chief complaint: lab eo Narrative: Noble Garcia is a 54-year-old male who denies past medical history who states that he has been feeling sick with headache, myalgias, productive cough for the past 5 days. He has been getting worse as far as his symptoms and he feels like it is getting harder to breathe. He denied any chest pain, nausea, vomiting, abdominal pain. He has had no diarrhea. He initially presented to the walk-in clinic when he became very ill and fell to the ground. He did not pass out and he did not hit his head. During my interview the patient appears ill, speaking only in 1-2 word phrases, and primarily is limited to yes or no responses. History is taken in combination from the patient and emergency room documentation. In the emergency room, patient's vital signs were notable for a fever to 102, tachycardia, hypoxemia to 88% on room air which responded to a minimal supplemental oxygenation. His flu test was positive for influenza a. ABG was also performed which showed a PO2 of 51. Other lab evaluation showed a rela tively unremarkable CBC, WBC count of 4.4. Chemistries revealed a sodium of 132, chloride 97, creatinine of 1.0, glucose of 128, lactate of 1.2 and a mildly elevated AST at 75. His procalcitonin was 0.19. In the emergency room he was also obstructed had 650 cc of urine. A Vega catheter was placed. UA was negative for infection. Patient was admitted to Medicine for sepsis with acute hypoxemic respiratory failure secondary to influenza A. Discharge Providers Provider Discharge Date: 04/23/20 Discharge provider: Ryland Islas DO Summary Hospital Course Discharge Diagnosis: Please see hospital course by problem list noted below. Please note that this discharge is listed in an erroneous encounter. Hospital Course: Noble Garcia is a 54-year-old male who denies past medical history who states that he has been feeling sick with headache, myalgias, productive cough for the past 5 days. He was admitted to Medicine with sepsis secondary to influenza a. 1. Sepsis, acute, present on admission - SOFA score of 3 with hypoxemic respiratory failure and GCS of 13. His confusion improved with supportive care and tamiflut. Sepsis is Secondary to influenza a. Procalcitonin is negative in do not suspect superimposed bacterial pneumonia at this time. -continued supportive care with Tamiflu 75 mg b.i.d. -supplemental oxygen was provided to maintain level greater than 80% -continued IV fluids until patient was adequately tolerating oral intake on the day of discharge. -symptom management was provided with Tylenol or Motrin. 2. Acute hypoxemic respiratory failure, secondary to influenza a as noted above. Resolved -supplemental oxygen as noted above 3. Toxic metabolic encephalopathy, acute, present on admission, improved- secondary to above sepsis and this dysregulated response from influenza a. -continue supportive management as above 4. Urinary obstruction, acute, present on admission -UA negative for infection, unclear etiology and patient reports no past medical history. Not able to give a reliable history for BPH symptoms at this time. -when mental status improved, vega catheter was removed. Patient elected to discharge before trial of void but was instructed to come back with any diff iculties. 5. Pre diabetes, new diagnosis -glucose mildly elevated on admission, A1c of 5.6% - recommended lifestyle modification. 6. Elevated AST, acuity uncertain, present on admission -likely elevated secondary to influenza and sepsis, also consider MCGUIRE. -improved levels over the course of admission. Follow up further results as an outpateint Exam Narrative Exam Narrative: GENERAL APPEARANCE: well appearing male in no acute distress, much improved from prior day. SKIN: Inspection of the skin reveals no rashes, ulcerations or petechiae. HEENT: Oral mucosa appears moist, sclera is anicteric, normocephalic and atraumatic. NECK: Supple and symmetric. There was no thyroid enlargement, and no tenderness, or masses were felt. No cervical lymphadenopathy is palpable. CHEST: Normal AP diameter and normal contour without any kyphoscoliosis. LUNGS: CTA b/l with no wheezes, rhonchi, or rales. CARDIOVASCULAR: There was a regular rate and rhythm without any murmurs, gallops, rubs. Peripheral pulses were 2+ and symmetric. ABDOMEN: Soft and nontender with normal bowel sounds. No ascites was noted. MUSCULOSKELETAL: There was no tenderness or effusions noted. Muscle strength and tone were normal. EXTREMITIES: No cyanosis, clubbing or edema. NEUROLOGIC: Confusion has improved, GCS of 15. He follows commands and is alert and oritented. He is moving all extremities equally. Objective Labs Result Diagrams: 09/06/19 16:52 Discharge Plan Discharge Med Rec/Prescriptions Prescriptions: No Action ibuprofen 600 mg Tablet 600 mg PO Q6HR PRN (Reason: Fever/Mild Pain (1-3)) Qty: 30 RF: 0 enoxaparin [Lovenox] 100 mg/mL Syringe 95 mg subcut BID Qty: 9 RF: 0 acetaminophen 325 mg Tablet 650 mg PO Q6HR PRN (Reason: Fever/Mild Pain (1-3)) Qty: 30 RF: 0 Pradaxa 150 mg capsule 150 mg PO BID Qty: 180 RF: 0 Discharge Data Attending Provider: Zuleyka Hess
== END ==
PROVIDERS: Visit Provider Internal Medicine
DX: I26.99 Other pulmonary embolism without acute cor pulmonale (principal)
CPT/HCPCS: 84145; 85025

== ENCOUNTER 2023-01-04 15:18 | Emergency (ER) | payer OTHER, SELFPAY ==
[2019-09-01 15:59] VITALS: BMI 30.7
[2023-01-04 15:37] VITALS: BP 150/80; PULSE 96; RESP 16; TEMP 37.1; O2SAT 97; BMI 31.0
--- NOTE | 2023-01-04 15:53 | DI.US.S_ITS ---
PROCEDURE: US PERIPH VENOUS LOW EXTREM LT INDICATIONS: SWELLING AND PAIN TECHNIQUE: Real-time imaging, as well as color and pulse Doppler interrogation, were performed of the lower extremity deep veins from the inguinal ligament to the popliteal fossa. COMPARISON: None. FINDINGS: The common femoral, femoral and popliteal veins are normally compressible, and free of intraluminal thrombus. Color and pulse Doppler demonstrate normal phasic intraluminal flow. There is normal augmentation response to distal compression maneuver. In the region of the pain at the posterior ankle/heel is an anechoic fluid collection measuring 1.8 x 2.2 x 0.2 cm, in close proximity to the Achilles tendon. Findings suggest partial versus full-thickness tear of the Achillis tendon. IMPRESSION: 1. No evidence DVT, left lower extremity. 2. Findings suggest partial-thickness versus full-thickness tear of the Achilles tendon with associated fluid. Comment: Consider ankle MR for further evaluation of the Achilles. Dictated by: Jv Quiñones M.D. on 01/04/2023 at 16:57 Approved by: Jv Quiñones M.D. on 01/04/2023 at 17:03
[2023-01-04 17:50] VITALS: PULSE 78
--- NOTE | 2023-01-04 18:23 | ED_ITS ---
HPI - General Adult General Chief complaint: Extremity Problem,Nontraumatic Stated complaint: Left leg swollen Time Seen by Provider: 01/04/23 18:14 Source: patient Mode of arrival: Wheelchair History of Present Illness HPI narrative: 49-year-old smoker with history of right lower extremity DVT presents with pain and swelling of his left lower extremity in the absence of injury. He states that on he awoke with significant swelling behind his left knee with swelling down to his foot. He denies any numbness or tingling and states that he has no pain unless he is attempting to ambulate. He comes wearing a boot orthosis that he was given after a prior DVT. Denies chest pain or shortness of breath. He is not dizzy nor weak or lightheaded. He denies any fever, chills nor nausea or vomiting. As stated he denies any trauma, overuse or memorable event leading to this swelling. Related Data Previous Rx's Medication Instructions Recorded acetaminophen 325 mg tablet 650 mg PO Q6HR PRN Fever/Mild Pain 09/01/19 (1-3) #30 tabs dabigatran etexilate 150 mg 150 mg PO BID #180 caps 09/01/19 capsule (Pradaxa) enoxaparin 100 mg/mL subcutaneous 95 mg (0.95 mL) SUBCUT BID #9 mL 09/01/19 syringe (Lovenox) ibuprofen 600 mg tablet 600 mg PO Q6HR PRN Fever/Mild Pain 09/01/19 (1-3) #30 tabs cephalexin 500 mg capsule 500 mg PO BID #14 caps 01/04/23 hydrocodone 5 mg-acetaminophen 325 1 tab PO Q4-6H PRN pain #10 tabs 01/04/23 mg tablet ketorolac 10 mg tablet 10 mg PO Q6H PRN pain #14 tabs 01/04/23 Allergies Allergy/AdvReac Type Severity Reaction Status Date / Time allopurinol [ALLOPURINOL] Allergy Unknown Verified 01/04/23 15:40 Review of Systems Review of Systems Narrative: GENERAL: Denies chills, fatigue, malaise, fever, sweats. HEENT: Denies sinus pain, ear pain, sore throat, difficulty swallowing, dizziness. RESPIRATORY: Denies dyspnea, cough, wheezing, hemoptysis, sputum. CARDIOVASCULAR: Denies chest pain, palpitations, orthopnea, edema, GASTROINTESTINAL: Denies nausea, vomiting, abdominal pain, diarrhea, constipation, melena. : Denies dysuria, frequency, incontinence, hematuria, urinary retention. MUSCULOSKELETAL: See HPI SKIN: See HPI NEUROLOGIC: See HPI PSYCHIATRIC: No concerning psychosocial issues. 12 point review of systems is negative except for those stated above Patient History Medical History (Updated 01/04/23 @ 21:42 by Tunde Griffith DO) Ankle pain (~2009) Chronic cough (~2019) Foot pain (~2009) Hearing loss Influenza A Family History Mother Lung cancer Brother Diabetes mellitus Social History household members: significant other Smoking Status: Never smoker alcohol intake: never Smoking Status: Never smoker alcohol intake frequency: 0-2 drinks per day Substance Use Type: does not use Exam Narrative Exam Narrative: GENERAL: [57] year old patient appears stated age. Well-developed patient, in mild distress. HEAD: Atraumatic. Normocephalic. EYES: Pupils equal round and reactive. Extraocular motions intact. No scleral icterus. No injection or drainage. ENT: Nose without bleeding, purulent drainage. Throat without erythema, tonsillar hypertrophy or exudate. Airway patent. NECK: Trachea midline. Non tender CARDIOVASCULAR: Regular rate and rhythm without murmurs, gallops, or rubs. RESPIRATORY: Clear to auscultation. Breath sounds equal bilaterally. No wheezes, rales, or rhonchi. GASTROINTESTINAL: Abdomen soft, non-tender, nondistended. EXTREMITIES: Left lower extremity with marked swelling below the knee, particularly tender in the popliteal fossa, no knee effusion, warmth or redness, compartments are soft, skin is warm, pink and dry, cap refill less than 2 seconds, he is able to wiggle his toes. He has significant pain with flexion and extension at the ankle, he does have plantar flexion with squeezing of the calf, though there is marked swelling there is the ability to palpate the Achilles tendon in its full distribution BACK: Nontender without deformity or crepitance. No flank tenderness. NEURO: AOx3. SKIN: No rash or erythema of visible areas Initial Vital Signs Initial Vital Signs: Vital Signs Temperature 98.7 F 05/15/23 15:37 Pulse Rate 96 H 01/04/23 15:37 Respiratory Rate 16 01/04/23 15:37 Blood Pressure 150/80 H 01/04/23 15:37 Pulse Oximetry 97 01/04/23 15:37 Oxygen Delivery Method Room Air 01/04/23 15:37 Course Orders Ordered: ED Orders 01/04/23 18:36 CT angio LE LT Stat 01/04/23 19:15 C-Reactive Protein Quant Stat Complete Blood Count AUTO DIFF Stat Comprehensive Metabolic Panel Stat Erythrocyte Sedimentation Rate Stat PTT Partial Thromboplastin Alexander Stat Prothrombin Time INR Stat Discontinued Medications Hydrocodone Bitart/Acetaminophen (Hydrocodone/Acet 5/325 Prepack) 1 bottle MISC SEEINSTR ONE Stop: 01/04/23 21:41 Last Admin: 01/04/23 22:32 Dose: 1 bottle Documented By: CAMI Cefazolin Sodium (Cephalexin 250 Mg Cap Prepack) 1 bottle MISC SEEINSTR ONE Stop: 01/04/23 21:41 Last Admin: 01/04/23 22:33 Dose: 500 mg Documented By: CAMI Vital Signs Vital signs: Vital Signs - 8 hr 01/04/23 22:35 Temperature 97.6 F Pulse Rate 78 Respiratory Rate 16 Blood Pressure 134/82 Pulse Oximetry 97 Oxygen Delivery Method Room Air Medical Decision Making Lab Data 01/04/23 19:15 01/04/23 19:15 Labs: Lab Results 01/04/23 01/04/23 01/04/23 Range/Units 19:15 19:15 19:15 WBC 10.1 (4.5-11.0) X10^3/uL RBC 4.07 L (4.5-5.9) X10^6/uL Hgb 13.7 (13.5-17.5) g/dL Hct 38.1 L (41-53) % MCV 93.7 (80-100) fL MCH 33.6 (26-34) PG MCHC 35.8 (30-36) % RDW 12.8 (11.6-14.8) % Plt Count 310 (150-400) X10^3/uL Neut % (Auto) 69.1 (50-75) % Lymph % (Auto) 15.8 L (25-40) % [place] % (Auto) 13.1 (3-14) % Eos % (Auto) 1.6 L (2-4) % Baso % (Auto) 0.4 (0-2) % Neut # (Auto) 7000 (0137-5585) /uL Lymph # (Auto) 1600 (8508-2096) /uL [place] # (Auto) 1300 H (0-900) /uL Eos # (Auto) 200 (0-450) /uL Baso # (Auto) 0 (0-100) /uL ESR 66 H (0-15) MM/HR PT 14.4 H (10.1-12.7) SECONDS INR 1.3 (0.9-1.3) APTT 26 (26-36) SECONDS Sodium 134 L (137-145) mmol/L Potassium 3.8 (3.4-5.1) mmol/L Chloride 97 L (98-107) mmol/L Carbon Dioxide 28 (22-32) mmol/L BUN 16 (9-20) mg/dL Creatinine 1.16 (0.66-1.25) mg/dL Estimated GFR > 60 (>60) mL/min BUN/Creatinine Ratio 13.8 (6-22) Glucose 106 H (70-100) mg/dL Calcium 8.9 (8.4-10.2) mg/dL Total Bilirubin 1.1 (0.2-1.3) mg/dL AST 29 (17-59) IU/L ALT 35 (<50) IU/L Alkaline Phosphatase 69 (38-126) U/L C-Reactive Protein 22.6 H (<1.0) mg/dL Total Protein 7.9 (6.3-8.2) g/dL Albumin 4.3 (3.5-5.0) g/dL Globulin 3.6 (1.7-4.1) g/dL Albumin/Globulin Ratio 1.2 (1.0-2.8) MDM Narrative Medical decision making narrative: CC: 57-year-old male with right lower extremity pain and swelling in the absence of injury Complicating co-morbidities: Age, smoker, prior DVT Data collected from: Patient Medical records reviewed: Prior notes reviewed in our EMR Differential considered, but not limited to: Cellulitis, DVT, vascular injury versus other Exam documented above, pertinent findings include: Pain, swelling, soft compartments, cap refill intact, no signs of compartment syndrome, intact Achilles, plantar flexion on calf squeeze, tenderness and popliteal fossa, abdomen soft and nontender Lab Test results independently reviewed as above. Pertinent findings: No leukocytosis or left shift, no signs of anemia, electrolytes and renal function largely within normal limits. Inflammatory markers significantly elevated Independently reviewed EKG as above Imaging studies independently reviewed: Peripheral ultrasound shows no sign of DVT though does show questionable fluid collection in the region of the Achilles suggesting possible rupture. CTA performed to ruleout vascular injury, no significant finding noted Treatments: Hydrocodone, Keflex Discussion: Patient with pain and swelling of his left lower extremity from the knee down to the ankle in the absence of injury. Furthermore, he has no systemic complaints such as fever, chills nor nausea or vomiting. Given his history of DVT ultrasound was ordered early which demonstrated no DVT but does show a fluid collection in the region of his Achilles that raised the question of a possible Achilles rupture. As noted the patient had not been on antibiotics, had no traumatic type injury has a palpable Achilles on exam and plantar flexion with calf squeeze. There is pain in his region and normal imaging and for this reason patient is placed back in his boot orthosis and encouraged not to weightbear until he can follow-up with orthopedics. Imaging does note what appears to be a left-sided White cyst and his exam could certainly be consistent with ruptured White cyst. Finally, after discussion with the patient regarding the potential risks and benefits of the use of antibiotics we sure the opinion that given the severity of his discomfort in his reasonable to initiate antibiotics, 1st dose tonight and prescription sent for the remainder. Other diagnoses such as compartment syndrome considered but thought less likely given his reassuring history and physical exam. Should be noted though anticoagulants are noted in the patient's medication history he does not currently take them it was taken off after is prior DVT resolved Disposition: see below, along with detailed discharge instructions that have been reviewed with patient as well as indications for ED re-evaluation and additional outpatient follow up Discharge Plan Departure Patient Disposition: Home Clinical Impression: White's cyst, Cellulitis Instructions: DI for Cellulitis -- Adult, DI for White Cyst, DI for Achilles Tendinopathy Activity Restrictions/Additional Instructions: *You have been diagnosed with [left knee White's cyst, possible Achilles tendon injury and possible early cellulitis.] *What to do: *Please continue to take your regular medications as directed. [ x] New medication prescriptions sent to your pharmacy: [ [facility] in [place]] [ ] New medication written as a paper prescription [ ] No new medications given *Given the questionable Achilles injury reported in the imaging please continue use of the boot orthosis and do NOT bear weight until your follow up with the orthopedist listed below. Please call the office tomorrow, let them know you were seen in the emergency department and we would like you to be seen in follow up. *Return to Emergency Department if you should have any new, worsening or concerning symptoms, such as [fever greater than 101 F, shaking chills, worsening pain, persistent vomiting or other bothersome symptoms] You have been prescribed a short course of narcotic medications. These are potentially dangerous and addictive medications that should be used carefully. While on these medications you cannot drive or operate heavy machinery. Additionally, you cannot sign legal documents or perform any duties such as this. 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 Please understand that we cannot provide further refills of narcotics or controlled substances through the ED and your pain management will need to be through your Primary Care Provider Prescriptions: New hydrocodone-acetaminophen 5-325 mg tablet 1 tab PO Q4-6H PRN (Reason: pain) Qty: 10 0RF ketorolac 10 mg tablet 10 mg PO Q6H PRN (Reason: pain) Qty: 14 0RF cephalexin 500 mg capsule 500 mg PO BID Qty: 14 0RF No Action ibuprofen 600 mg Tablet 600 mg PO Q6HR PRN (Reason: Fever/Mild Pain (1-3)) Qty: 30 0RF Rx Instructions: Be sure to take with food and drink plenty of water enoxaparin [Lovenox] 100 mg/mL Syringe 95 mg subcut BID Qty: 9 0RF acetaminophen 325 mg Tablet 650 mg PO Q6HR PRN (Reason: Fever/Mild Pain (1-3)) Qty: 30 0RF Pradaxa 150 mg capsule 150 mg PO BID Qty: 180 0RF Referrals: Miscellaneous,MD Abigail [Primary Care Provider] - Jacob Carranza MD [Physician] - Stand Alone Forms: Patient Portal/API
--- NOTE | 2023-01-04 18:36 | DI.CT.S_ITS ---
P wall ROCEDURE: CT ANGIO LE LT INDICATIONS: severe pain, redness swelling knee down, vascular injury? TECHNIQUE: After the administration of intravenous contrast, 2.5 mm sections acquired from T12 to the feet, with optional delayed image acquisition from the knees to the feet. 3-dimensional maximum intensity projection (MIP) coronal and sagittal reformats, and/or 3-dimensional volume rendering reformatting was then performed. For radiation dose reduction, the following was used: automated exposure control. COMPARISON: None. FINDINGS: Image quality: Excellent. Extravascular tissues: There is subcutaneous edema within the distal thigh, knee, and lower leg most prominent anteriorly. No discrete peripherally enhancing fluid collections to suggest an abscess. The visualized musculature appears preserved. There is a small left knee joint effusion and small White's cyst and a small White's cyst. The visualized pelvis demonstrates no intraperitoneal free fluid. Visualized bowel loops are normal in caliber. Visualized osseous structures appear intact without fracture or dislocation. No discrete bony erosions or periosteal reaction. Left pelvic arteries: The visualized distal abdominal aorta is normal in caliber. The right common, external, and internal iliac arteries appear patent. Left lower extremity: The common, superficial, and deep femoral arteries appear patent throughout their course. The popliteal artery is patent. The anterior tibial artery, tibioperoneal trunk, posterior tibial artery, and fibular artery appear patent along their course. No dissection, pseudoaneurysms, or other definite evidence of acute arterial injury. IMPRESSION: 1. No evidence of acute arterial injury, stenosis, or occlusion within the left lower extremity. 2. Subcutaneous edema in the left lower extremity most prominent in the lower leg are nonspecific and may reflect cellulitis. No discrete abscess collection. 3. Small left knee joint effusion and small White's cyst. Dictated by: Arnaldo Goins M.D. on 01/04/2023 at 21:17 Approved by: Arnaldo Goins M.D. on 01/04/2023 at 21:22
[2023-01-04 19:25] LABS: Add Manual Diff / Slide Review NO; Basophils Absolute Auto 0 /uL (0-100); Basophils Percent Auto 0.4 % (0-2); Eosinophils Absolute Auto 200 /uL (0-450); Eosinophils Percent Auto 1.6 % (2-4); Hematocrit 38.1 % (41-53); Hemoglobin 13.7 g/dL (13.5-17.5); Lymphocytes Absolute Auto 1600 /uL (1100-4500); Lymphocytes Percent Auto 15.8 % (25-40); Mean Corpuscular HGB Conc 35.8 % (30-36); Mean Corpuscular Hemoglobin 33.6 PG (26-34); Mean Corpuscular Volume 93.7 fL (80-100); Monocytes Absolute Auto 1300 /uL (0-900); Monocytes Percent Auto 13.1 % (3-14); Neutrophils Absolute Auto 7000 /uL (1500-7000); Neutrophils Percent Auto 69.1 % (50-75); Platelet Count 310 X10^3/uL (150-400); Red Blood Cell Count 4.07 X10^6/uL (4.5-5.9); Red Cell Distribution Width 12.8 % (11.6-14.8); White Blood Cell Count 10.1 X10^3/uL (4.5-11.0)
[2023-01-04 19:38] LABS: INR 1.3 (0.9-1.3); Prothrombin Time 14.4 SECONDS (10.1-12.7)
[2023-01-04 19:41] LABS: PTT Partial Thromboplastin Tim 26 SECONDS (26-36)
[2023-01-04 19:46] LABS: Alanine Aminotransferase 35 IU/L (<50); Albumin 4.3 g/dL (3.5-5.0); Albumin Globulin Ratio 1.2 (1.0-2.8); Alkaline Phosphatase 69 U/L (38-126); Aspartate Aminotransferase 29 IU/L (17-59); BUN Creatinine Ratio 13.8 (6-22); Bilirubin Total 1.1 mg/dL (0.2-1.3); Blood Urea Nitrogen 16 mg/dL (9-20); Calcium 8.9 mg/dL (8.4-10.2); Carbon Dioxide 28 mmol/L (22-32); Chloride 97 mmol/L (98-107); Estimated Glomerular Filt Rate > 60 mL/min (>60); Globulin 3.6 g/dL (1.7-4.1); Glucose 106 mg/dL (70-100); HEMOLYSIS < 15 (0-50); Potassium 3.8 mmol/L (3.4-5.1); Sodium 134 mmol/L (137-145); Total Protein 7.9 g/dL (6.3-8.2)
[2023-01-04 19:58] LABS: C-Reactive Protein Quant 22.6 mg/dL (<1.0)
[2023-01-04 20:03] LABS: Erythrocyte Sedimentation Rate 66 MM/HR (0-15)
[2023-01-04] MEDS: HYDROCODONE/ACET 5/325 PREPACK 1 BOTTLE MISC (22:32)
[2023-01-04] MEDS: cephALEXin 250 MG CAP PREPACK 1 BOTTLE MISC (22:33)
[2023-01-04 22:35] VITALS: BP 134/82; PULSE 78; RESP 16; TEMP 36.4; O2SAT 97
== END 2023-01-04 22:37 | disposition home or self-care (01) ==
PROVIDERS: Emergency Provider Emergency Medicine
DX: L03.116 Cellulitis of left lower limb (principal); M66.0 Rupture of popliteal cyst
CPT/HCPCS: 36415; 73706; 80053; 85025; 85610; 85651; 85730; 86140; 93971; 99283; 99284; Q9967